=== PATIENT | female | born 1955 | race Caucasian/White ===

== ENCOUNTER 2018-05-20 12:19 | Inpatient (IN) | payer OTHER ==
[2018-05-20] MEDS ORDERED: MEROPENEM 1 GM/50 ML 1 GM in Premix Bag 1 BAG IVPB SCH (15:15)
[2018-05-20] MEDS ORDERED: Ondansetron ODT 4 MG TAB PO PRN (16:35)
[2018-05-20] MEDS ORDERED: Acetaminophen 650 MG Suppository PR PRN (16:35)
[2018-05-20] MEDS ORDERED: Ondansetron HCl/PF 4 MG/2 ML Vial IVP PRN (16:35)
[2018-05-20] MEDS ORDERED: Acetaminophen 325 MG TAB PO PRN (16:35)
[2018-05-20] MEDS ORDERED: D5 1/2 NS w/20 mEq KCL 1,000 ML IV SCH (16:45)
--- NOTE | 2018-05-20 17:11 | HP ---
DATE OF ADMISSION: 05/20/2018 PRIMARY CARE PHYSICIAN: None. CHIEF COMPLAINT: Nausea, vomiting, and abdominal discomfort over the last 48 hours. HISTORY OF PRESENT ILLNESS: The patient is a 62-year-old female with no significant past medical his tory, who presented to the emergency room with nausea, vomiting, and abdominal discomfort that starte d Friday evening. She ate outside on the same day around noon. She had some chicken for lunch. Mariaelena und 8:00 p.m., she had some cheese along with pineapple. One hour later, she started having nausea a nd vomiting with abdominal discomfort. Abdominal discomfort was mainly localized in the right lower quadrant. It was crampy, moderate to severe in intensity without any aggravating or relieving factor . She also vomited 3-4 times. The vomitus was nonbloody and nonbilious. She denies any fever or ch ills. She routinely has 2 bowel movements on a daily basis. Her last bowel movement was this mornin g, which was soft and brown. She denies any hematemesis, melena or hematochezia. No weight loss rep orted. She denies any previous endoscopies. In the emergency room at [facility], her initial vital signs showed temperature 97.4, respirations 26, pulse 105, blood pressure 141/95 with O2 saturation 93% on room air. A CT scan of the abdomen was do ne that showed terminal ileitis with functional SBO. EKG showed sinus tachycardia. She received Zos yn, fentanyl, Bentyl, IV fluids and Zofran in the emergency room. She was transferred to this facili ty. NG tube was placed. PAST MEDICAL HISTORY: Reviewed with the patient and none. PAST SURGICAL HISTORY: 1. Hysterectomy. 2. Liposuction x2. ALLERGIES: No known drug allergies. CURRENT HOME MEDICATIONS: Reviewed with the patient and none. SOCIAL HISTORY: The patient currently lives at home. She denies any smoking, alcohol or drug use. She is in contact with animals mainly dogs and horses. She is FULL CODE, makes her own decision. He r mother is at the bedside. FAMILY HISTORY: Grandmother on mother's side with stomach cancer. Grandfather on mother's side with oral cancer from smoking. REVIEW OF SYSTEMS: The following complete review of systems was negative, unless otherwise mentioned in the HPI or below: Constitutional: Weight loss or gain, ability to conduct usual activities. Skin: Rash, itching. Eyes: Double vision, pain. ENT/Mouth: Nose bleeding, neck stiffness, pain, tenderness. Cardiovascular: Palpitations, dyspnea on exertion, orthopnea. Respiratory: Shortness of breath, wheezing, cough, hemoptysis, fever or night sweats. Gastrointestinal: Poor appetite, abdominal pain, heartburn, nausea, vomiting, constipation, or diarrhea. Genitourinary: Urgency, frequency, dysuria, nocturia. Musculoskeletal: Pain, swelling. Neurologic/Psychiatric: Anxiety, depression. Allergy/Immunologic: Skin rash, bleeding tendency. PHYSICAL EXAMINATION: VITAL SIGNS: As discussed above. GENERAL: A 62-year-old female in mild distress. Pain improved with fentanyl. HEENT: Head atraumatic, normocephalic. Sclerae are anicteric. Moist mucous membrane. No oral lesi on. NECK: Supple, no JVD appreciated. No carotid bruit. LUNGS: Clear to auscultation bilaterally. No wheezing, rales or rhonchi. HEART: S1, S2 present. Regular rate and rhythm. Tachycardic. No heaves or pulsation. No signific ant murmurs appreciated. ABDOMEN: Soft, obese, diffusely tender mainly in the right lower quadrant. No guarding or rigidity noted. Bowel sounds were present. EXTREMITIES: No edema or calf tenderness. NEUROLOGIC: Grossly nonfocal, moves all four extremities. PSYCHIATRY: Alert, awake, oriented x3. SKIN: Warm and dry. LYMPH NODES: No palpable lymph nodes in the neck. PERIPHERAL VASCULAR: Radial pulses palpable bilaterally. MUSCULOSKELETAL: No joint swelling or tenderness. LABORATORY FINDINGS: CBC showed WBC 21.5 with hemoglobin 15.9, hematocrit 44.8, platelet of 263. Ur inalysis was negative for wbc or bacteria, it showed ketones. Chemistries showed sodium 138, potassi um 3.9, chloride 99, bicarbonate 27, BUN 20, creatinine 1.03, glucose 152. Lactic acid 2.4, total bi lirubin 1.7. AST, ALT, alkaline phosphatase in normal range. Lipase was 10. Chest x-ray by sobia yusuf was negative for infiltrate or edema. CT scan of the abdomen showed extremely thick terminal ileum with substantial inflammatory stranding around it and in the vicinity. There are small pockets of fluid without any abscess. It also showed mild to moderate distention of the small bowel. There were gallstones also seen. EKG by my review as discussed above. IMPRESSION: 1. Sepsis with acute organ dysfunction secondary to terminal ileitis. 2. Suspected inflammatory bowel disease. 3. Cholelithiasis without any CT finding consistent with cholecystitis. 4. Obesity. 5. Hyperglycemia, rule out diabetes. 6. Dehydration. 7. Lactic acidosis. 8. Abnormal liver function tests, probably secondary to sepsis. PLAN: The patient will be monitored on the surgical floor. GI consultation will be obtained. We wi ll continue NG tube with mild intermittent suction. We will continue IV fluids. We will keep her n. p.o. except for a few ice chips. We will get stool studies. We will start her on Zosyn. We will al so add Flagyl until C. diff is ruled out. We will repeat labs on a daily basis. Repeat lactic acid in a.m. Recheck LFTs in a.m. Plan of care was discussed with the patient in detail. She stated understanding.
[2018-05-20] MEDS: D5 1/2 NS w/20 mEq KCL 1,000 ML IV SCH (18:18)
[2018-05-20] MEDS: Piperacillin/Tazobactam 3.375 GM in Sodium Chloride 0.9% 100 ML IVPB SCH ×2 (18:24→20:55)
[2018-05-20] MEDS: metroNIDAZOLE 500 MG in Premix Bag 1 BAG IVPB SCH (18:25)
[2018-05-20 18:32] VITALS: BMI 38.4
[2018-05-20] MEDS: Famotidine/PF 20 mg/2ml Vial SLOW IVP SCH (20:55)
--- NOTE | 2018-05-20 23:30 | CON ---
DATE OF CONSULTATION: 05/20/2018 REASON FOR CONSULTATION: Abdominal pain, distention, nausea, and vomiting. HISTORY: Ms. Gonzalez is a 62-year-old female who has been essentially very healthy without any m edical issue presented to [facility] emergency room with a 2-day history of persistent abdominal disten tion and diffuse abdominal pain along with nausea, vomiting. During this time, she denies having any fever or chills. She did have 2 bowel movements over the last 48 hours, one regular stool, and one loose stool without any visible blood or mucus. The distention increased and persisted along with di ffuse abdominal pain. This prompted ER visit. CT performed of the abdomen and pelvis showed mural t hickening involving the distal ileum with surrounding inflammatory changes with possible dilatation o f the small bowel. Her colon exam appeared normal on CT. The patient denies having any antecedent g astrointestinal problem or symptoms. She did have a negative colonoscopy in 1999 while living in [facility]. PAST MEDICAL HISTORY: 1. Status post hysterectomy and BSO. 2. History of liposuction. 3. No medical illness. ALLERGIES: None. MEDICATIONS AT HOME: None. SOCIAL HISTORY: The patient is , has one daughter. No tobacco or alcohol usage. FAMILY HISTORY: Negative for any known GI problem, liver disease, or GI malignancy in the immediate family. Paternal grandmother with gastric cancer. REVIEW OF SYSTEMS: Weight stable. Appetite normal. Eyes, ears, nose, and throat: All negative. C ardiovascular: Denies any chest pain. Chest: No shortness of breath or coughing. Gastrointestinal : As above. Genitourinary: No urinary or bladder issue. Gynecologic/neurologic/psychiatric: All negative. PHYSICAL EXAMINATION: VITAL SIGNS: Temperature is 98.7, blood pressure 146/82, pulse of 91. GENERAL: She is alert, conversant, in no distress. HEENT: Anicteric sclerae. Oropharynx clear. There is an NG tube through the nostril with bilious a spirate. NECK: Supple. CARDIOVASCULAR: Normal S1, S2. Regular rate and rhythm. CHEST: Breath sounds. ABDOMEN: Distended and protuberant. Diffuse tympany. No active bowel sounds. Diffusely tender, bu t no peritoneal sign. EXTREMITIES: No edema. LABORATORY DATA: WBC is 21.5, hemoglobin 15.9, hematocrit 44.8%, platelet count of 263. Sodium 138, potassium 2.9, chloride 99, CO2 of 27, creatinine 1.03, BUN of 20, bilirubin 1.7, AST of 10, ALT of 17, alkaline phosphatase 98, lipase of 10. Abdominal pelvic CT performed at 9 o'clock this morning s howed severe mural thickening involving the distal ileum with surrounding inflammatory stranding with possible dilation of the small bowel. ASSESSMENT: 1. A 62-year-old female presents with small-bowel obstruction with CT demonstrating severe inflammat ory changes involving distal ileum causing small-bowel obstruction. Clinical presentation along with CT findings suggestive of Crohn's disease. I doubt that this is an infectious process or neoplastic process. 2. Small-bowel obstruction secondary to #1 with resultant abdominal distention, pain, nausea, and vo miting. RECOMMENDATIONS: 1. Continue IV hydration. 2. Continue with NG tube to low intermittent wall suction for bowel decompression. 3. We will start on prednisolone 20 mg IV q.8 hours. 4. We will follow up with abdominal x-ray in 36-48 hours. 5. We will follow closely, further recommendations to follow pending her clinical course and progres s.
[2018-05-21] MEDS: metroNIDAZOLE 500 MG in Premix Bag 1 BAG IVPB SCH ×3 (00:26→17:55)
[2018-05-21] MEDS: D5 1/2 NS w/20 mEq KCL 1,000 ML IV SCH ×2 (00:30→05:05)
[2018-05-21 04:56] LABS: #Eosinphils 0.1 thou/uL (0.0-0.7); #Monocytes 0.2 thou/uL (0.11-0.59); #Neutrophils 14.1 thou/uL (1.40-6.50); %Eosinophils 0.3 % (0.0-10.0); %Lymphocytes 6.2 % (21.0-51.0); %Neutrophils 92.4 % (42.0-75.0); Hemoglobin 13.6 g/dL (12.0-16.0); Mean Corpuscular HGB CONC 33.1 g/dL (32.0-36.0); Mean Corpuscular Hemoglobin 31.3 pg (27.0-31.0); Mean Corpuscular Volume 94.6 fL (78.0-98.0); Mean Platelet Volume 7.5 fL (7.4-10.4); Platelet Count 221 thou/uL (130-400); RBC Distribution Width 12.2 % (11.5-14.5); Red Blood Cell (RBC) Count 4.33 mill/uL (4.20-5.40); White Blood Cell (WBC) Count 15.3 thou/uL (4.8-10.8)
[2018-05-21 05:00] LABS: Hemoglobin A1c 5.5 % (4.0-6.0)
[2018-05-21 05:13] LABS: Lactic Acid 2.6 mmol/L (0.5-2.2)
[2018-05-21 05:23] LABS: ALT (SGPT) 11 U/L (8-55); AST (SGOT) 18 U/L (5-34); Albumin 3.3 g/dL (3.4-4.8); Alkaline Phosphatase 98 U/L (40-150); Anion Gap 12 mmol/L (10-20); BUN (Urea Nitrogen) 13 mg/dL (9.8-20.1); Bilirubin, Total 0.6 mg/dL (0.2-1.2); CRP (Inflammatory) 30.25 mg/dL (= or < 0.5); Calc. Creatinine Clearance 112 mL/min (70-130); Calcium 10.6 mg/dL (7.8-10.44); Carbon Dioxide 23 mmol/L (23-31); Chloride 107 mmol/L (98-107); Estimated GFR-MDRD 64; Globulin 3.6 g/dL (2.4-3.5); Glucose 239 mg/dL (80-115); Magnesium 2.5 mg/dL (1.6-2.6); Phosphorus 1.3 mg/dL (2.3-4.7); Potassium 5.2 mmol/L (3.5-5.1); Protein, Total 6.9 g/dL (6.0-8.3); Sodium 137 mmol/L (136-145)
[2018-05-21] MEDS: Piperacillin/Tazobactam 3.375 GM in Sodium Chloride 0.9% 100 ML IVPB SCH ×4 (05:44→23:16)
[2018-05-21] MEDS: Famotidine/PF 20 mg/2ml Vial SLOW IVP SCH ×2 (10:40→20:48)
--- NOTE | 2018-05-21 13:46 | PRG ---
DATE OF SERVICE: 05/21/2018 SUBJECTIVE: The patient feels significantly better. She is less distended. She no longer has any b loating, abdominal pain. She reports having had a loose bowel movement this morning. There is no na usea. PHYSICAL EXAMINATION: VITAL SIGNS: Temperature is 97.5, blood pressure 152/79, pulse of 66. GENERAL: She is alert, sitting by bedside in no distress. HEENT: Shows anicteric sclerae. Oropharynx clear. NG tube through nostril with bilious aspirate. CARDIOVASCULAR: Shows normal S1, S2 regular rate and rhythm. CHEST: Shows normal breath sounds. ABDOMEN: Protuberant. Still mildly tympanitic. There is no tenderness. She does have occasional t rickling bowel sounds. EXTREMITIES: Shows no edema. LABORATORY DATA: WBC is 15.3, hemoglobin 13.6, hematocrit 41%, platelet count of 221. Sodium 137, p otassium 5.2, chloride 107, CO2 23, creatinine 0.9. Lactic acid is 2.6, bilirubin 0.6, AST of 18, AL T of 11. C-reactive protein 30.25. ASSESSMENT: 1. Small-bowel obstruction from ileitis, clinically much better on IV methylprednisolone. 2. Suspect inflammatory ileitis consistent with Crohn's disease. Doubt infectious process or neopla stic process. RECOMMENDATIONS: 1. Stool studies as ordered. 2. Continue with NG decompression today, followup abdominal x-rays in a.m. 3. Continue IV prednisolone at 40 mg IV q.6. as patient does not have side effects. 4. Anticipate discontinuing NG tube tomorrow. 5. We will follow.
[2018-05-21] MEDS: Dextrose 5 %-0.45 % NaCl 1,000 ML IV SCH ×2 (17:55→21:15)
--- NOTE | 2018-05-21 22:39 | PDOC.PN ---
- Subjective Encounter Start Date: 05/21/18 Encounter Start Time: 14:00 Patient seen and examined for Colitis. Abd pain improving. No fever/chills. Approx 900 ml NG tube output. No other complaints. No overnight events - Objective Resuscitation Status: Resuscitation Status FULL:Full Resuscitation MAR Reviewed: Yes Vital Signs & Weight: Vital Signs (12 hours) Temp Pulse Resp BP Pulse Ox 05/21/18 20:00 98 F 68 16 157/83 H 92 L 05/21/18 16:00 97.9 F 70 24 H 146/83 H 93 L 05/21/18 12:00 97.5 F L 66 18 152/79 H 91 L Weight Weight 238 lb I&O: 05/20/18 05/21/18 05/22/18 06:59 06:59 06:59 Intake Total 2600 Output Total 900 150 Balance 1700 -150 Result Diagrams: 05/22/18 04:07 05/22/18 04:07 Radiology Reviewed by me: Yes (CT abd - reviewed) Phys Exam - Physical Examination Constitutional: NAD Respiratory: no wheezing, no rales, no rhonchi, clear to auscultation bilateral Cardiovascular: RRR, no rub No heaves/pulsations Gastrointestinal: soft, no distention, positive bowel sounds mild RLQ tend, No rebound/guarding Musculoskeletal: no edema Neurological: non-focal, moves all 4 limbs Psychiatric: A&O x 3 Dx/Plan - Plan DVT proph w/SCDs IMPRESSION: 1. Sepsis with acute organ dysfunction secondary to terminal ileitis. - infective vs inflammatory 2. Cholelithiasis without any CT finding consistent with cholecystitis. 3. Obesity BMI 38.4 4. Dehydration. 5. Lactic acidosis at 2.6 today 6. Abnormal liver function tests, probably secondary to sepsis. PLAN: * Cont Zosyn with Flagyl * Await Stool w/u * Cont IV Steroids per GI * Change IVF to D51/2 NS due to hyperkalemia * AM labs * Ambulate * Repeat Lactic acid after 48 hr Review of Systems - Review of Systems Respiratory: negative: Cough, Dry, Shortness of Breath, Hemoptysis, SOB with Excertion, Pleuritic Pain, Sputum, Wheezing Cardiovascular: negative: chest pain, palpitations, orthopnea, paroxysmal nocturnal dyspnea, edema, light headedness, other - Medications/Allergies Allergies/Adverse Reactions: Allergies Allergy/AdvReac Type Severity Reaction Status Date / Time No Known Allergies Allergy Verified 05/21/18 00:53 Medications: Current Medications Acetaminophen (Tylenol) 650 mg PO Q4H PRN PRN Reason: Headache/Fever or Pain Acetaminophen (Tylenol) 650 mg ME Q4H PRN PRN Reason: Headache/Fever or Pain Famotidine (Pepcid) 20 mg SLOW IVP Q12HR [facility] Last Admin: 05/21/18 20:48 Dose: 20 mg Metronidazole 500 mg/ Device 100 mls @ 100 mls/hr IVPB 0200,1000,1800 [facility] Last Admin: 05/21/18 17:55 Dose: 100 mls Piperacillin Sod/Tazobactam (Sod 3.375 gm/ Sodium Chloride) 100 mls @ 200 mls/ hr IVPB 0500,1100,1700,2300 [facility] Last Admin: 05/21/18 17:55 Dose: 100 mls Dextrose/Sodium Chloride (D5 1/2 Ns) 1,000 mls @ 150 mls/hr IV .[id number] [facility] Last Admin: 05/21/18 21:15 Dose: 1,000 mls Methylprednisolone Sodium Succinate (Solu-Medrol) 40 mg IVP Q6HR [facility] Last Admin: 05/21/18 17:55 Dose: 40 mg Ondansetron HCl (Zofran Odt) 4 mg PO Q6H PRN PRN Reason: Nausea/Vomiting Ondansetron HCl (Zofran) 4 mg IVP Q6H PRN PRN Reason: Nausea/Vomiting
[2018-05-22] MEDS: Dextrose 5 %-0.45 % NaCl 1,000 ML IV SCH ×3 (02:05→14:40)
[2018-05-22] MEDS: metroNIDAZOLE 500 MG in Premix Bag 1 BAG IVPB SCH ×3 (02:08→17:50)
[2018-05-22 04:30] LABS: #Lymphocytes 1.1 thou/uL (1.20-3.40); #Monocytes 0.5 thou/uL (0.11-0.59); #Neutrophils 14.5 thou/uL (1.40-6.50); %Eosinophils 0.1 % (0.0-10.0); %Monocytes 3.1 % (0.0-10.0); %Neutrophils 89.8 % (42.0-75.0); Hemoglobin 12.7 g/dL (12.0-16.0); Mean Corpuscular HGB CONC 33.9 g/dL (32.0-36.0); Mean Corpuscular Hemoglobin 31.6 pg (27.0-31.0); Mean Corpuscular Volume 93.2 fL (78.0-98.0); Mean Platelet Volume 7.7 fL (7.4-10.4); Platelet Count 238 thou/uL (130-400); RBC Distribution Width 12.1 % (11.5-14.5); Red Blood Cell (RBC) Count 4.02 mill/uL (4.20-5.40); White Blood Cell (WBC) Count 16.2 thou/uL (4.8-10.8)
[2018-05-22 04:50] LABS: Anion Gap 8 mmol/L (10-20); BUN (Urea Nitrogen) 15 mg/dL (9.8-20.1); Calc. Creatinine Clearance 140 mL/min (70-130); Carbon Dioxide 27 mmol/L (23-31); Chloride 110 mmol/L (98-107); Estimated GFR-MDRD 82; Potassium 3.8 mmol/L (3.5-5.1); Sodium 141 mmol/L (136-145)
[2018-05-22 04:51] LABS: Calcium 10.9 mg/dL (7.8-10.44); Glucose 222 mg/dL (80-115)
[2018-05-22] MEDS: Piperacillin/Tazobactam 3.375 GM in Sodium Chloride 0.9% 100 ML IVPB SCH ×4 (05:18→22:58)
--- NOTE | 2018-05-22 08:55 | RAD ---
ABDOMEN TWO VIEWS: HISTORY: A 62-year-old female with a history of followup small bowel obstruction. COMPARISON: Prior CT from 05/20/2018. FINDINGS: NG tube is in place. There is some scattered gas in the colon with a small amount of gas in one nond ilated loop of small bowel. This is considerably improved from the prior study. No new process. No free intraperitoneal air. IMPRESSION: Resolving small bowel obstruction. No significant persistent abnormally dilated small bowel loops. Scattered gas in the colon. POS: TPC
[2018-05-22] MEDS: Famotidine/PF 20 mg/2ml Vial SLOW IVP SCH (10:03)
[2018-05-22] MEDS ORDERED: Dextrose 5 %-0.45 % NaCl 1,000 ML IV SCH (11:57)
[2018-05-22] MEDS: K-Phos Neutral 250 MG TAB PO SCH ×2 (14:39→17:49)
--- NOTE | 2018-05-22 19:27 | PRG ---
DATE OF SERVICE: 05/22/2018 SUBJECTIVE: Ms. Gonzalez is doing considerably better. She has no nausea, vomiting, and very lit tle abdominal pain. NG tube has been removed. She is tolerating clear liquids thus far. PHYSICAL EXAMINATION: VITAL SIGNS: Temperature is 98.2, blood pressure 164/84, pulse of 62. GENERAL: She is alert, conversant, in no distress. HEENT: Shows anicteric sclerae. Oropharynx clear. CARDIOVASCULAR: Shows normal S1, S2. Regular rate and rhythm. CHEST: Shows breath sounds. ABDOMEN: Protuberant, but no distention, no tympany. She has hypoactive bowel sounds. EXTREMITIES: Shows no edema. LABORATORY DATA: WBC 16.2, hemoglobin 12.7, hematocrit 37.5, platelet count of 238. Sodium 141, pot assium 3.8, chloride 110, CO2 of 27, creatinine 0.72, BUN of 15. Phosphorus 1.5. IMAGING: Abdominal x-ray showed resolution of small bowel distention suggestive resolution of small- bowel obstruction. ASSESSMENT: 1. Small-bowel obstruction, resolving. 2. Suspect inflammatory ileitis consistent with Crohn's disease. Doubt infectious or neoplastic pro cess. The patient is responding well clinically to IV methylprednisolone. RECOMMENDATIONS: 1. We will decrease IV methylprednisolone to 20 mg q.8 hours. 2. Advance diet tomorrow if tolerates, can be discharged on prednisone 40 mg daily, tapering over next one month. 3. Dr. Brush will cover for GI Service this weekend.
--- NOTE | 2018-05-22 22:50 | PDOC.PN ---
- Subjective Encounter Start Date: 05/22/18 Encounter Start Time: 12:00 Patient seen and examined for Sepsis. No new complaints. Abd pain improving. No overnight events - Objective Resuscitation Status: Resuscitation Status FULL:Full Resuscitation MAR Reviewed: Yes Vital Signs & Weight: Vital Signs (12 hours) Temp Pulse Resp BP Pulse Ox 05/22/18 20:48 98 F 57 L 16 96 05/22/18 20:00 98 F 57 L 16 176/84 H 96 05/22/18 15:37 98.2 F 62 22 H 164/84 H 94 L 05/22/18 11:31 97.4 F L 59 L 14 179/90 H 94 L Weight Weight 238 lb I&O: 05/21/18 05/22/18 05/23/18 06:59 06:59 06:59 Intake Total 2600 1550 Output Total 900 350 Balance 1700 1200 Result Diagrams: 05/22/18 04:07 05/23/18 05:05 Additional Labs: Laboratory Tests 05/22/18 05/22/18 12:14 12:15 Phosphorus 1.5 L PTH Intact 168.7 H Radiology Reviewed by me: Yes (KUB - resolving SBO) Phys Exam - Physical Examination Constitutional: NAD Respiratory: no wheezing, no rhonchi Cardiovascular: RRR, no rub Gastrointestinal: soft, non-tender, positive bowel sounds mild tend in lower efraín Musculoskeletal: no edema Dx/Plan - Plan out of bed/ambulate, DVT proph w/SCDs IMPRESSION: 1. Sepsis with acute organ dysfunction secondary to terminal ileitis. - infective vs inflammatory - improving 2. Cholelithiasis without any CT finding consistent with cholecystitis. 3. Primary hyperparathyroidism - New diagnosis 4. Dehydration. 5. Lactic acidosis 6. Abnormal liver function tests(resolved)/Obesity BMI 38.4 PLAN: * Cont IV Steroids with Zosyn/Flagyl * Stool w/u pending * Change IVF to 75 ml/hr * DC NG tube * Clear liqd diet * AM labs * Ambulate * Check Vit D * Outpt follow up for Primary hyperparathyroidism * Check Lactic acid in AM . Review of Systems - Review of Systems Respiratory: negative: Cough, Dry, Shortness of Breath, Hemoptysis, SOB with Excertion, Pleuritic Pain, Sputum, Wheezing Cardiovascular: negative: chest pain, palpitations, orthopnea, paroxysmal nocturnal dyspnea, edema, light headedness, other - Medications/Allergies Allergies/Adverse Reactions: Allergies Allergy/AdvReac Type Severity Reaction Status Date / Time No Known Allergies Allergy Verified 05/21/18 00:53 Medications: Current Medications Acetaminophen (Tylenol) 650 mg PO Q4H PRN PRN Reason: Headache/Fever or Pain Acetaminophen (Tylenol) 650 mg DE Q4H PRN PRN Reason: Headache/Fever or Pain Metronidazole 500 mg/ Device 100 mls @ 100 mls/hr IVPB 0200,1000,1800 [facility] Last Admin: 05/22/18 17:50 Dose: 100 mls Piperacillin Sod/Tazobactam (Sod 3.375 gm/ Sodium Chloride) 100 mls @ 200 mls/ hr IVPB 0500,1100,1700,2300 [facility] Last Admin: 05/22/18 17:15 Dose: 100 mls Dextrose/Sodium Chloride (D5 1/2 Ns) 1,000 mls @ 75 mls/hr IV .[id number] [facility] Last Admin: 05/22/18 14:40 Dose: Not Given Methylprednisolone Sodium Succinate (Solu-Medrol) 20 mg IVP Q8HR [facility] Ondansetron HCl (Zofran Odt) 4 mg PO Q6H PRN PRN Reason: Nausea/Vomiting Ondansetron HCl (Zofran) 4 mg IVP Q6H PRN PRN Reason: Nausea/Vomiting Phosphorus (Kphos Neutral) 250 mg PO TID-[facility] Last Admin: 05/22/18 17:49 Dose: 250 mg Saccharomyces Boulardii (Florastor) 250 mg PO DAILY [facility]
[2018-05-23] MEDS: Dextrose 5 %-0.45 % NaCl 1,000 ML IV SCH ×2 (01:57→14:09)
[2018-05-23] MEDS: metroNIDAZOLE 500 MG in Premix Bag 1 BAG IVPB SCH ×3 (02:36→17:54)
[2018-05-23] MEDS: Piperacillin/Tazobactam 3.375 GM in Sodium Chloride 0.9% 100 ML IVPB SCH ×4 (05:32→22:16)
[2018-05-23 05:37] LABS: Lactic Acid 1.4 mmol/L (0.5-2.2)
[2018-05-23 05:45] LABS: Anion Gap 7 mmol/L (10-20); BUN (Urea Nitrogen) 19 mg/dL (9.8-20.1); Calc. Creatinine Clearance 134 mL/min (70-130); Calcium 10.4 mg/dL (7.8-10.44); Carbon Dioxide 28 mmol/L (23-31); Chloride 110 mmol/L (98-107); Estimated GFR-MDRD 79; Glucose 161 mg/dL (80-115); Phosphorus 2.7 mg/dL (2.3-4.7); Potassium 3.8 mmol/L (3.5-5.1); Sodium 141 mmol/L (136-145)
[2018-05-23] MEDS: Saccharomyces boulardii 250 MG CAP PO SCH (10:31)
[2018-05-23] MEDS: K-Phos Neutral 250 MG TAB PO SCH ×3 (10:31→17:53)
--- NOTE | 2018-05-23 13:46 | PRG ---
DATE OF SERVICE: 05/23/2018 SUBJECTIVE: Ms. Pao Gonzalez is a very pleasant 62-year-old female with acute onset of abdominal cramping, nausea, and vomiting. The patient has evidence of SBO by CAT scan and it was felt that patient most likely has IBD, possibly new onset of Crohn's disease. The patient has been on IV steroids and she is actually feeling better. The and she is following a clear liquid t. She is having bowel movements and passing flatus. No abdominal pain, no nausea, no vomiting. Sh claudia is on IV steroids. She has no complaints. Her calcium was 10.9 on admission, it has come to 10.4 today. She is being seen by Nephrology because of hypercalcemia. She offers no complaints. PHYSICAL EXAMINATION: GENERAL: Appears very comfortable, in no distress. VITAL SIGNS: Stable, afebrile, pulse is 59, blood pressure 175/87. HEENT: Conjunctivae clear. CARDIOVASCULAR: First and second heart sounds were normal. LUNGS: Clear to auscultation. ABDOMEN: Soft to palpate. No organomegaly. No tenderness. She has active bowel sounds. LABORATORY DATA: Chem-7 from today shows sodium of 141, potassium 3.8, chloride 110, bicarbonate 28, glucose is 161, BUN is 19 and creatinine 0.75. RECOMMENDATIONS: Advance diet to a regular diet. If she tolerates diet, we will consider dischargin g home on .
[2018-05-23] MEDS ORDERED: hydrALAZINE 20 MG/ML VIAL SLOW IVP PRN (15:58)
[2018-05-23] MEDS ORDERED: cloNIDine 0.1 MG TAB PO PRN (15:58)
[2018-05-23] MEDS ORDERED: Amlodipine 5 MG TAB PO SCH (16:00)
[2018-05-23] MEDS ORDERED: NIFEdipine XL 30 MG TAB PO PRN (18:42)
--- NOTE | 2018-05-23 18:47 | PDOC.PN ---
- Subjective Encounter Start Date: 05/23/18 Encounter Start Time: 18:30 Patient seen and examined for Sepsis/Ilietis. No new complaints. Toleraing regular diet. No overnight events - Objective Resuscitation Status: Resuscitation Status FULL:Full Resuscitation MAR Reviewed: Yes Vital Signs & Weight: Vital Signs (12 hours) Temp Pulse Resp BP Pulse Ox 05/23/18 15:13 97.7 F 55 L 16 191/80 H 98 05/23/18 11:00 97.8 F 52 L 16 184/80 H 97 05/23/18 08:00 97.7 F 59 L 16 95 05/23/18 07:43 97.7 F 59 L 16 175/87 H 95 Weight Weight 238 lb I&O: 05/22/18 05/23/18 05/24/18 06:59 06:59 06:59 Intake Total 1550 2230 Output Total 350 300 Balance 1200 -300 2230 Result Diagrams: 05/22/18 04:07 05/23/18 05:05 Phys Exam - Physical Examination Constitutional: NAD Respiratory: no wheezing, no rales, no rhonchi Cardiovascular: RRR, no rub Gastrointestinal: soft, non-tender, positive bowel sounds Musculoskeletal: no edema Neurological: moves all 4 limbs Dx/Plan - Plan DVT proph w/SCDs IMPRESSION: 1. Sepsis with acute organ dysfunction secondary to terminal ileitis ( infective vs inflammatory) 2. Cholelithiasis - asymtomatic 3. Hypercalcemia/Hypophosphatemia due to Primary hyperparathyroidism 4. HTN - uncontrolled. 5. Dehydration/Lactic acidosis/Abnormal liver function tests - resolved/ Obesity BMI 38.4 PLAN: -Cont Atbx/steroids -Await Stool w/u -DC IVF -Add Procardia XL -DC planning Laboratory Tests 05/22/18 05/22/18 05/23/18 12:14 12:15 05:05 Phosphorus 1.5 L 2.7 PTH Intact 168.7 H Review of Systems - Review of Systems Respiratory: negative: Cough, Dry, Shortness of Breath, Hemoptysis, SOB with Excertion, Pleuritic Pain, Sputum, Wheezing Cardiovascular: negative: chest pain, palpitations, orthopnea, paroxysmal nocturnal dyspnea, edema, light headedness, other Gastrointestinal: negative: Nausea, Vomiting, Abdominal Pain, Diarrhea, Constipation, Melena, Hematochezia, Other - Medications/Allergies Allergies/Adverse Reactions: Allergies Allergy/AdvReac Type Severity Reaction Status Date / Time No Known Allergies Allergy Verified 05/21/18 00:53 Medications: Current Medications Acetaminophen (Tylenol) 650 mg PO Q4H PRN PRN Reason: Headache/Fever or Pain Acetaminophen (Tylenol) 650 mg NV Q4H PRN PRN Reason: Headache/Fever or Pain Clonidine (Catapres) 0.1 mg PO Q4H PRN PRN Reason: Systolic BP > 180 Hydralazine HCl (Apresoline) 10 mg SLOW IVP Q4H PRN PRN Reason: SBP Greater Than 180 Metronidazole 500 mg/ Device 100 mls @ 100 mls/hr IVPB 0200,1000,1800 [facility] Last Admin: 05/23/18 17:54 Dose: 100 mls Piperacillin Sod/Tazobactam (Sod 3.375 gm/ Sodium Chloride) 100 mls @ 200 mls/ hr IVPB 0500,1100,1700,2300 [facility] Last Admin: 05/23/18 17:53 Dose: 100 mls Methylprednisolone Sodium Succinate (Solu-Medrol) 20 mg IVP Q8HR [facility] Last Admin: 05/23/18 14:10 Dose: 20 mg Nifedipine (Procardia Xl) 30 mg PO BID PRN PRN Reason: SBP Greater Than 180 Ondansetron HCl (Zofran Odt) 4 mg PO Q6H PRN PRN Reason: Nausea/Vomiting Ondansetron HCl (Zofran) 4 mg IVP Q6H PRN PRN Reason: Nausea/Vomiting Pantoprazole Sodium (Protonix) 40 mg PO DAILY [facility] Phosphorus (Kphos Neutral) 250 mg PO TID-[facility] Last Admin: 05/23/18 17:53 Dose: 250 mg Saccharomyces Boulardii (Florastor) 250 mg PO DAILY [facility] Last Admin: 05/23/18 10:31 Dose: 250 mg
[2018-05-23] MEDS ORDERED: NIFEdipine XL 30 MG TAB PO SCH (21:00)
[2018-05-24] MEDS: metroNIDAZOLE 500 MG in Premix Bag 1 BAG IVPB SCH ×2 (02:13→09:40)
[2018-05-24 05:26] LABS: #Lymphocytes 1.4 thou/uL (1.20-3.40); #Monocytes 0.5 thou/uL (0.11-0.59); #Neutrophils 6.8 thou/uL (1.40-6.50); %Basophils 0.1 % (0.0-1.0); %Eosinophils 0.4 % (0.0-10.0); %Lymphocytes 15.5 % (21.0-51.0); %Monocytes 5.9 % (0.0-10.0); %Neutrophils 78.1 % (42.0-75.0); Hemoglobin 13.4 g/dL (12.0-16.0); Mean Corpuscular HGB CONC 32.6 g/dL (32.0-36.0); Mean Corpuscular Hemoglobin 30.6 pg (27.0-31.0); Mean Corpuscular Volume 93.9 fL (78.0-98.0); Mean Platelet Volume 7.4 fL (7.4-10.4); Platelet Count 263 thou/uL (130-400); RBC Distribution Width 12.1 % (11.5-14.5); Red Blood Cell (RBC) Count 4.37 mill/uL (4.20-5.40); White Blood Cell (WBC) Count 8.7 thou/uL (4.8-10.8)
[2018-05-24] MEDS: Piperacillin/Tazobactam 3.375 GM in Sodium Chloride 0.9% 100 ML IVPB SCH ×2 (05:30→10:32)
[2018-05-24 05:35] LABS: Anion Gap 11 mmol/L (10-20); BUN (Urea Nitrogen) 14 mg/dL (9.8-20.1); Calc. Creatinine Clearance 144 mL/min (70-130); Calcium 10.5 mg/dL (7.8-10.44); Carbon Dioxide 28 mmol/L (23-31); Chloride 108 mmol/L (98-107); Estimated GFR-MDRD 85; Glucose 176 mg/dL (80-115); Potassium 5.1 mmol/L (3.5-5.1); Sodium 142 mmol/L (136-145)
[2018-05-24] MEDS ORDERED: Amlodipine 5 MG TAB PO SCH (09:00)
--- NOTE | 2018-05-24 09:02 | CON ---
DATE OF CONSULTATION: 05/23/2018 CONSULTING PHYSICIAN: Dr. Sierra. REASON FOR CONSULTATION: Hypercalcemia. REASON FOR ADMISSION: Nausea and vomiting. HISTORY OF PRESENT ILLNESS: This is a 62-year-old female with history of no significant past medical history, who came to the hospital with nausea, vomiting, and was found to have hypercalcemia, which is getting better with IV hydration. Nephrology is consulted for further evaluation. The patient is feeling much better. . No chest pain or shortness of breath. PAST MEDICAL HISTORY: None. PAST SURGICAL HISTORY: Hysterectomy, liposuction. HOME MEDICATIONS: None. ALLERGIES: No known drug allergies. SOCIAL HISTORY: No smoking, alcohol, or illicit drug abuse. FAMILY HISTORY: Positive for cancer. REVIEW OF SYSTEMS: The following complete review of systems was negative, unless otherwise mentioned in the HPI or below: Constitutional: Weight loss or gain, ability to conduct usual activities. Sk in: Rash, itching. Eyes: Double vision, pain. ENT/Mouth: Nose bleeding, neck stiffness, pain, te nderness. Cardiovascular: Palpitations, dyspnea on exertion, orthopnea. Respiratory: Shortness of breath, wheezing, cough, hemoptysis, fever or night sweats. Gastrointestinal: Poor appetite, abdom inal pain, heartburn, nausea, vomiting, constipation, or diarrhea. Genitourinary: Urgency, frequenc y, dysuria, nocturia. Musculoskeletal: Pain, swelling. Neurologic/Psychiatric: Anxiety, depressio n. Allergy/Immunologic: Skin rash, bleeding tendency. PHYSICAL EXAMINATION: GENERAL: This is an obese female, in no apparent distress. VITAL SIGNS: Temperature 97.7, pulse 59, respirations 18, blood pressure 175/87. HEENT: Atraumatic, normocephalic. Oral mucosa is moist. NECK: Supple, no masses. CARDIOVASCULAR: S1, S2, rate and rhythm regular. RESPIRATORY: Clear. GASTROINTESTINAL: Abdomen is soft. MUSCULOSKELETAL: No tenderness. No edema. DERMATOLOGIC: No skin rash. NEUROLOGIC: Alert and awake. PSYCHIATRIC: Mood and affect normal. LABORATORY DATA: Hemoglobin is 12.7. Potassium is 3.8, BUN is 19, creatinine is 0.8. Calcium is 10 .4, on admission was 11.9. PTH was 168. Phosphorus is 1.5 2.7. ASSESSMENT AND PLAN: 1. Hypercalcemia and PTH dependent. We will have to repeat labs. If this remains elevated, the pat ient needs to have parathyroid scan and maybe follow up with ENT or Endocrinology as outpatient. 2. Hypertension. Titrate medications. 3. Hypophosphatemia, replace. 4. Lactic acidosis, better. 5. Morbid obesity. 6. Edema, controlled. 7. Titrate blood pressure medications and IV fluids if tolerated. Calcium is already better. Need workup as outpatient. We will follow. Thank you for the consult.
[2018-05-24] MEDS: Saccharomyces boulardii 250 MG CAP PO SCH (09:40)
[2018-05-24] MEDS: K-Phos Neutral 250 MG TAB PO SCH (09:41)
[2018-05-24 12:04] VITALS: BP 165/86; TEMP 97.3
--- NOTE | 2018-05-24 12:54 | PRG ---
DATE OF SERVICE: 05/24/2018 SUBJECTIVE: Patient was seen and examined at bedside and overnight events noted. Patient denies any shortness of breath or chest pain or palpitation. No history of nausea or vomiting or diarrhea or f ever or chills or cramps. OBJECTIVE: GENERAL: This is an elderly female in no apparent distress. VITAL SIGNS: Temperature 98.7, pulse 64, respiratory rate 19, blood pressure 134/83. HEENT: Atraumatic, normocephalic. Oral mucosa is moist. NECK: Supple. CARDIOVASCULAR: S1, S2 heard. Rate and rhythm regular. RESPIRATORY: Clear to auscultation. GASTROINTESTINAL: Abdomen is soft. MUSCULOSKELETAL: No tenderness. No edema. DERMATOLOGIC: No skin rash. NEUROLOGIC: Alert and awake and oriented x3. No focal neurologic deficits. Moving all the extremiti es. PSYCHIATRIC: Mood and affect normal. LABORATORY DATA: Potassium is 5.1, BUN 14, creatinine 0.7, calcium is 10.5, vitamin D 11.3. ASSESSMENT AND PLAN: 1. Hypercalcemia, PTH dependent. Need a nuclear medicine scan as outpatient. 2. Vitamin D deficiency. We will start on vitamin D. 3. Hypophosphatemia, replaced. 4. Edema, controlled. 5. Mild hyperkalemia. Agree with holding the supplements. The patient was advised to follow up with the clinic in 1-2 weeks. Limit calcium supplements. Okay with vitamin D supplements for now. Monitor PTH.
--- NOTE | 2018-05-24 13:07 | DIS ---
DISCHARGE DISPOSITION: Home. FOLLOWUP: 1. Follow up with primary care physician in 1 week. Patient does not have a primary care physician at this time. She will find one close to home. She is unable to provide the name of the PCP at this time. 2. Follow up with Gastroenterology, Dr. Zhang, next week. 3. Follow up with Nephrology, Dr. Thakkar, next week for hypercalcemia. 4. Follow up with ENT, Dr. Juan Hinojosa, for new diagnosis of primary hyperparathyroidism. The patient was seen on the day of discharge. Denies any new complaints, no chest pain, shortness of breath, palpitations. BRIEF HOSPITAL COURSE: Patient is a 62-year-old female with no significant past medical history, who presented to the hospital with nausea, vomiting, and abdominal discomfort for the last 48 hours. He r workup was consistent with sepsis with acute organ dysfunction secondary to terminal ileitis with s mall-bowel obstruction. NG tube was placed in the emergency room, which was continued. The patient was seen by Gastroenterology, Dr. Zhang. She was placed on Zosyn with Flagyl. Dr. Zhang started her o n IV steroids for possible inflammatory bowel disease. She has shown good improvement over the last 48 hours. NG tube has been discontinued. She is tolerating regular food. Her WBC counts are back t o normal at 8.7 from 21.5. She has been cleared by Gastroenterology for discharge on prednisone tape r. Risk from prednisone discussed with the patient. She stated understanding. The patient was found to have hypercalcemia on admission. She was found to have low phosphorus as we ll as elevated parathyroid hormone at 168.7. Vitamin D was 11.3. The patient was seen by Nephrology , Dr. Thakkar. She will follow up with ENT as an outpatient for further workup. She understands the plan. Plan of care was discussed with the patient in detail. She stated understanding. FINAL DIAGNOSES: 1. Sepsis with acute organ dysfunction, secondary to terminal ileitis with small-bowel obstruction. 2. New diagnosis of primary hyperparathyroidism. 3. Electrolyte abnormalities. The patient has hypercalcemia and hypophosphatemia. 4. Hypertension. The patient used to be on antihypertensives in the remote past. She has been star juan on Procardia-XL 30 mg daily. She was advised to monitor blood pressure on a daily basis. 5. Dehydration with lactic acidosis on admission, resolved. 6. Abnormal liver function tests, resolved. 7. Obesity with a BMI of 38.4. 8. Vitamin D deficiency. SIGNIFICANT LABORATORIES: Stool workup was negative except for positive leukocyte esterase. Total b ilirubin on admission 1.7, next day was 0.6. CRP 30.25. Plan of care was discussed with the patient in detail. She stated understanding. Total time coordinating the discharge of this patient was 33 minutes.
--- NOTE | 2018-05-24 13:50 | PRG ---
DATE OF SERVICE: 05/24/2018 HOSPITAL VISIT NOTE HISTORY OF PRESENT ILLNESS: This is a 62-year-old female hospitalized with acute abdominal pain, nausea, vomiting, and findings of SBO. The patient's ileal inflammation was felt to be new on set of Crohn's disease. The patient was started on IV steroids and has done remarkably well. She is on regular diet, tolerating it without any abdominal pain, nausea, vomiting. She is having regular bowel movements. She has no complaints. PHYSICAL EXAMINATION: VITAL SIGNS: Afebrile. Her vital signs are stable. CARDIOVASCULAR SYSTEM: First and second heart sounds were normal. LUNGS: Clear to auscultation. ABDOMEN: Soft to palpate. No organomegaly. No tenderness. No masses. CLINICAL IMPRESSION: 1. SBO, resolved. 2. New onset Crohn's disease, most likely. RECOMMENDATIONS: 1. The patient can be discharged home on prednisone taper to start with 40 mg once a day and cut saige n by 5 mg every week. 2. Potassium supplement. 3. To follow up with Dr. Lisandro Zhang in the next week or so.
[2018-05-24] MEDS ORDERED: NIFEdipine XL 30 MG TAB PO SCH (21:00)
== END 2018-05-24 13:10 | disposition home or self-care (01) | DRG 872 ==
LOC: ERS 12:19 → SURG B 16:17
PROVIDERS: ADMIT Internal Medicine; ATTEND Internal Medicine
DX: A41.9 Sepsis, unspecified organism (principal); E87.2 Acidosis; K50.012 Crohn's disease of small intestine with intestinal obstruction; R65.20 Severe sepsis without septic shock; K80.20 Calculus of gallbladder without cholecystitis without obstruction; E21.0 Primary hyperparathyroidism; I10 Essential (primary) hypertension; E86.0 Dehydration; E66.9 Obesity, unspecified; Z68.38 Body mass index [BMI] 38.0-38.9, adult; Z90.710 Acquired absence of both cervix and uterus; R73.9 Hyperglycemia, unspecified; E55.9 Vitamin D deficiency, unspecified; E87.5 Hyperkalemia; K52.9 Noninfective gastroenteritis and colitis, unspecified
CPT/HCPCS: 36415; 74019; 80048; 80053; 82306; 83036; 83605; 83630; 83735; 83970; 84100; 85025; 85652; 86140; 87045; 87046; 87081; 87324; 87449; 87899; 99285; A4216; J2185; J2405; J2543; J2920; J7050; S0028

== ENCOUNTER 2020-11-30 15:41 | Observation (INO) | payer OTHER ==
[~2020-11-30 15:41] MED LIST: Dexamethasone 20 MG/5 ML VIAL ONE; Glycopyrrolate 0.2 MG/ML 5 ML SYRINGE ONE; Ketorolac Tromethamine 30 MG/ML VIAL ONE; Ondansetron PF 4 MG/2 ML Vial ONE; PROPOFOL 200 MG/20 ML VIAL ONE; Rocuronium Bromide 10 MG/ML (10ML VIAL) ONE; Succinylcholine 200 MG/10 ml SYRINGE FS ONE; diphenhydrAMINE 50 MG/ML VIAL ONE
[2020-11-30] MEDS ORDERED: Midazolam HCl 2 mg/2 ml Vial ONE (15:56)
[2020-11-30] MEDS ORDERED: Fentanyl 100 MCG/2 ML VIAL ONE (15:56)
[2020-11-30] MEDS ORDERED: Bupivacaine 0.25% HCL 30 ML VIAL ONE (16:07)
[2020-11-30] MEDS ORDERED: XYLOCAINE 2%-EPI 1:100,000 20 ML VIAL ONE (16:07)
[2020-11-30] MEDS ORDERED: Sodium Chloride 0.9% 20 ML ONE (16:25)
[2020-11-30] MEDS ORDERED: cefOXitin 2 GM in Sodium Chloride 0.9% 100 ML IVPB SCH (16:30)
[2020-11-30] MEDS ORDERED: cefOXitin Sodium/Dextrose 2 GM/50 ML BAG ONE (16:36)
--- NOTE | 2020-11-30 16:45 | HP ---
HISTORY OF PRESENT ILLNESS: Ms. Gonzalez is a 65-year-old woman. She is 5 feet 6 inches and weighs 219 pounds. The patient reports insidious onset of sharp periumbilical abdominal pain, which started approximately 5:00 a.m. and has worsened over the course of the day. Pain was rated at 9/10 at maximum intensity and has since settled in the right lower quadrant. Pain is associated with multiple episodes of nausea and 2 bouts of nonbilious emesis. She denies any fevers or chills. She denies any diarrhea or unexplained weight loss. PAST MEDICAL HISTORY: She denies any previous medical problems. PAST SURGICAL HISTORY: She admits to abdominal hysterectomy and abdominoplasty. SOCIAL HISTORY: She is a who is an junior staff accountant by profession. She denies any cigarette smoking, ethanol, or illicit drug abuse. She lives independently. CURRENT MEDICATIONS: Wcdv-hyw-upmzgbu multivitamins. ALLERGIES: THE PATIENT DENIES ANY KNOWN DRUG ALLERGIES. FAMILY HISTORY: Noncontributory for this patient's age. REVIEW OF SYSTEMS: 10-point review of systems essentially unremarkable except as stated in past medical history and chief complaint. PHYSICAL EXAMINATION: GENERAL: This reveals a 65-year-old obese woman, who is otherwise coherent, interactive, and appears stated age. The patient is alert and oriented x3. She appears to be in no acute distress at the time of my evaluation. VITAL SIGNS: Include blood pressure 174/102, pulse 84, respiratory rate is 18, temperature 97.3 degrees Fahrenheit, oxygen saturation 100% on room air. HEENT: Reveals normocephalic and atraumatic. Pupils are equal, round, reactive to light and accommodation. Extraocular muscles are intact bilaterally. She has no scleral icterus present. Oral mucosa is pink and moist. No lesions are noted. NECK: Supple. No palpable lymphadenopathy or thyromegaly present. HEART: Reveals regular rate and rhythm. No murmurs or gallops auscultated. LUNGS: Clear to auscultation bilaterally. Her breathing is regular and nonlabored. ABDOMEN: Soft and obese. She has right lower quadrant tenderness to palpation. She has a positive Rovsing sign. Liver and spleen are otherwise nonpalpable below costal margin. She has a low extended Pfannenstiel incision consistent with prior history of abdominal hysterectomy and subsequent abdominoplasty. NEUROLOGIC: Reveals no focal deficits present. LABORATORY DATA: Pertinent laboratory findings today include a CBC, which was obtained in [place] with 12,500 white blood cells, hemoglobin and hematocrit 16.1 and 47.1 respectively. Platelets count 227,000. Urinalysis is essentially unremarkable. COVID-19 test is negative. Metabolic profile; sodium 139, potassium 4.0, chloride is 104, bicarb is 25, BUN 12, creatinine 0.73, glucose 135, lactic acid is 1.2, total bilirubin is 0.6, AST and ALT normal at 20 and 27 respectively. Serum lipase is normal at 25. IMAGING STUDIES: I have personally reviewed the CT scan of the abdomen and pelvis obtained in [place]. This is remarkable for a fluid-filled dilated appendix, which measures 18 mm in diameter. No pneumoperitoneum or significant free fluid is noted. Stable multiple intraluminal gallstones noted without any evidence of acute cholecystitis. IMPRESSION: Acute appendicitis. RECOMMENDATIONS AND PLAN: Laparoscopic appendectomy. I have advised the patient of the above findings and recommendations. I have also informed her of the risks and benefits of proposed surgery to include, but not limited to bleeding, infection, injury to bowel or surrounding structures. This information was provided to the patient in the presence of her nurse at bedside. The patient indicates understanding of the information provided. I have answered her questions. The patient has granted consent for this admission and surgical intervention. Job ID: [id number]
[2020-11-30] MEDS ORDERED: Enoxaparin Sodium 40 MG/0.4 ML SYRINGE ONE (17:17)
[2020-11-30] MEDS ORDERED: Dextrose 50% Abboject 50 ML SYRINGE SLOW IVP PRN ×2 (18:52→20:26)
[2020-11-30] MEDS ORDERED: Ondansetron PF 4 MG/2 ML Vial IVP PRN (18:52)
[2020-11-30] MEDS ORDERED: Morphine 2 MG/ML VIAL SLOW IVP PRN (18:52)
[2020-11-30] MEDS ORDERED: hydrALAZINE 20 MG/ML VIAL SLOW IVP PRN ×2 (18:52→20:26)
[2020-11-30] MEDS ORDERED: Promethazine HCl 25 MG/ML VIAL IM PRN ×2 (18:52→18:59)
[2020-11-30] MEDS ORDERED: Dextrose 5% in Water 1,000 ML IV PRN ×2 (18:52→20:26)
[2020-11-30] MEDS ORDERED: traMADol HCl 50 MG TAB PO PRN ×2 (18:55)
[2020-11-30] MEDS ORDERED: Promethazine HCl 25 MG/ML VIAL SLOW IVP PRN (18:59)
[2020-11-30] MEDS ORDERED: Ondansetron HCl/PF 4 MG/2 ML Vial IVP PRN (18:59)
[2020-11-30] MEDS: Lactated Ringer's 1,000 ML IV SCH (21:00)
[2020-11-30] MEDS: Famotidine/PF 20 mg/2ml Vial SLOW IVP SCH (21:23)
[2020-11-30] MEDS: Famotidine 20 MG TAB PO SCH (21:23)
[2020-11-30 22:14] VITALS: BMI 38.4
[2020-11-30] MEDS: Piperacillin/Tazobactam 3.375 GM in Sodium Chloride 0.9% 100 ML IVPB SCH (23:17)
[2020-11-30] MEDS: Acetaminophen 500 MG TAB PO SCH (23:17)
[2020-11-30] MEDS: Ketorolac Tromethamine 30 MG/ML VIAL IVP SCH (23:18)
--- NOTE | 2020-11-30 23:56 | OP ---
DATE OF PROCEDURE: 11/30/2020 PREOPERATIVE DIAGNOSIS: Acute appendicitis. POSTOPERATIVE DIAGNOSES: 1. Acute suppurative appendicitis with perforation. 2. Intraabdominal adhesions. OPERATIONS PERFORMED: 1. Laparoscopic adhesiolysis. 2. Laparoscopic appendectomy. ANESTHESIA: General endotracheal. ESTIMATED BLOOD LOSS: 50 mL. FLUIDS GIVEN: 1200 mL crystalloid. SPONGE AND INSTRUMENT COUNTS: Verified as correct x2. COMPLICATIONS: None apparent at the time of operation. INDICATIONS FOR OPERATION: This is a 65-year-old morbidly obese woman, who presented with 24-hour history of periumbilical abdominal pain, which settled in the right lower quadrant. Clinical and radiographic examination were consistent with acute appendicitis, for which the patient was brought to the operating room for appendectomy. Findings are consistent with dilated suppurative appendix with evidence of perforation of the base and purulent pus. Additionally, extensive intraabdominal adhesions were encountered involving the anterior abdominal wall. DESCRIPTION OF PROCEDURE: Informed consent was obtained from the patient, was brought to the operating room and placed in supine position. Following general anesthesia, Miramontes catheter was inserted and placed to bedside drain. The abdomen was sterilely prepped and draped in usual fashion. The skin above the umbilicus was infiltrated with 0.25% Marcaine with epinephrine. A small curvilinear supraumbilical incision was made using an 11 scalpel. Umbilical stalk was grasped with Addie and elevated. Veress needle was inserted through the incision and placed in the peritoneal cavity through which the abdomen was insufflated with 4 L of CO2 gas. Intraabdominal pressure noted at 2 mmHg. Following abdominal insufflation, the Veress needle was removed and a 5 mm trocar introduced using a Visiport under laparoscopy. Laparoscopy confirmed proper placement of the port, no injuries to underlying structures. Additional laparoscopy reveals extensive amount of omental adhesions involving the anterior abdominal wall. Under direct vision, a right lower quadrant 5 mm port was introduced after the overlying skin was infiltrated with 0.25% Marcaine with epinephrine. Appropriate incision was made. I introduced the LigaSure device from this port site using this to take down omental adhesions to transilluminate left lower quadrant abdominal wall chosen for placement of the port. At that juncture, a 5 mm left lower quadrant port was placed after the overlying skin infiltrated with 0.25% Marcaine with epinephrine. Appropriate incision was made. The patient was placed in a Trendelenburg position, rotated to her left. I introduced the Endo suction catheter using this to bluntly take down omental adhesions from the right lower quadrant to expose a dilated appendix. An Endo [place] forceps was then introduced through the right lower quadrant port site grasping the appendix, which was elevated. I used LigaSure device to sterilely take down omental adhesions down to the base of the appendix. This appendiceal stump appeared to be have blown off the cecum. The appendix was then delivered off the abdominal cavity using an EndoCatch. I then proceeded to bluntly dissect the right lower quadrant again following the course of distal ileum from the ileocecal junction down to proximal 2 feet finding no Meckel's diverticulum. The appendiceal stump was then dissected from the cecum and divided the appendix cecal junction using Endo loop. This fragment was delivered off the abdominal cavity using a second EndoCatch. Operative site was irrigated with saline. A #19 Walt drain was introduced through the right lower quadrant port site with the tip coursing the right lateral gutter and part of the drain in the deep pelvis. This drain was allowed to exit the right lower quadrant port site. The drain was secured to anterior abdominal wall using 2-0 silk suture. Finding no other pathology, laparoscopy was terminated. The fascia of the left lower quadrant port was closed using 0 Vicryl suture and Endoclosure device under laparoscopy. The abdomen was desufflated. All ports and instruments removed and accounted for. The skin incisions closed using 4-0 Monocryl suture in subcuticular fashion. Dermabond was applied over incisional closure. The patient tolerated the operation without any apparent complication and was returned to recovery room in satisfactory condition. Job ID: [id number]
[2020-11-30] MEDS ORDERED: Acetaminophen 500 MG TAB PO SCH (23:59)
[2020-12-01] MEDS: Piperacillin/Tazobactam 3.375 GM in Sodium Chloride 0.9% 100 ML IVPB SCH (05:25)
[2020-12-01] MEDS: Acetaminophen 500 MG TAB PO SCH (05:25)
[2020-12-01] MEDS: Lactated Ringer's 1,000 ML IV SCH (05:25)
[2020-12-01] MEDS: Ketorolac Tromethamine 30 MG/ML VIAL IVP SCH (05:26)
[2020-12-01 05:46] LABS: #Lymphocytes 1.3 thou/uL (1.20-3.40); #Monocytes 1.1 thou/uL (0.11-0.59); #Neutrophils 17.4 thou/uL (1.40-6.50); %Eosinophils 0.1 % (0.0-10.0); %Lymphocytes 6.6 % (21.0-51.0); %Monocytes 5.7 % (0.0-10.0); %Neutrophils 87.6 % (42.0-75.0); Hemoglobin 14.3 g/dL (12.0-16.0); Mean Corpuscular HGB CONC 32.9 g/dL (32.0-36.0); Mean Corpuscular Hemoglobin 30.9 pg (27.0-31.0); Mean Corpuscular Volume 93.8 fL (78.0-98.0); Mean Platelet Volume 7.7 fL (7.4-10.4); Platelet Count 237 thou/uL (130-400); RBC Distribution Width 11.7 % (11.5-14.5); Red Blood Cell (RBC) Count 4.63 mill/uL (4.20-5.40); White Blood Cell (WBC) Count 19.8 thou/uL (4.8-10.8)
[2020-12-01 06:15] LABS: Anion Gap 14 mmol/L (10-20); BUN (Urea Nitrogen) 12 mg/dL (9.8-20.1); Calc. Creatinine Clearance 133 mL/min (70-130); Calcium 9.4 mg/dL (7.8-10.44); Carbon Dioxide 21 mmol/L (23-31); Chloride 106 mmol/L (98-107); Glucose 155 mg/dL (80-115); Sodium 137 mmol/L (136-145)
[2020-12-01] MEDS: Famotidine 20 MG TAB PO SCH (08:15)
[2020-12-01] MEDS: Famotidine/PF 20 mg/2ml Vial SLOW IVP SCH (08:15)
[2020-12-01] MEDS ORDERED: Enoxaparin Sodium 40 MG/0.4 ML SYRINGE SC SCH ×2 (09:00→21:00)
[2020-12-01 12:02] VITALS: BP 128/76; TEMP 98.7
--- NOTE | 2020-12-01 12:51 | DIS ---
DATE OF ADMISSION: 11/30/2020 DATE OF DISCHARGE: 12/01/2020 ADMITTING DIAGNOSIS: Acute appendicitis with perforation. DISCHARGE DIAGNOSIS: Acute appendicitis with perforation. PROCEDURE PERFORMED: Laparoscopic appendectomy on 11/30/[address] Cullen. Please see a separate dictation for operative report. HISTORY AND HOSPITAL COURSE: A 65-year-old morbidly obese woman with BMI 38.4, who presented with abdominal pain. Clinical and radiographic examination were consistent with acute appendicitis, for which the patient was taken to the operating room for laparoscopic appendectomy. Findings in surgery included significant abdominal adhesions as well as purulent periappendiceal abscess. Following an uneventful laparoscopic appendectomy and lysis of adhesion, the patient was admitted to surgical floor, where she remained at the time of discharge. Postop day #1, she is ambulating with minimum difficulty. She is tolerating clear liquid diet. Urinary output is adequate for this patient's age and weight. She ambulates with minimum difficulty. She reports adequate pain control with oral analgesics. Abdominal examination reveals intact incisional wounds. Weston-Monet drain has returned 30 mL of serosanguineous fluid since placement. The drain was removed today without incident. DISCHARGE INSTRUCTIONS: The patient will be discharged home today with the following instructions; 1. She sees me in the Surgery Clinic in 2 weeks. 2. She is to avoid weight lifting in excess of 20 pounds until she has been released by me. She may shower effective tomorrow. 3. She is to avoid soaking herself in a bathtub or swimming for 2 weeks. She may take Tylenol 1000 mg p.o. q.6 hours alternating this with ibuprofen 600 mg p.o. q.8 hours p.r.n. pain. 4. She is also given a prescription for tramadol 50 mg #30 to be taken 1 to 2 p.o. q.6 hours p.r.n. breakthrough pain. 5. She is given a prescription for Augmentin 875 mg one p.o. b.i.d. for 7 days and also a prescription for Florastor 250 mg to be taken one p.o. daily. 6. The patient is to call me with any questions or problems including exacerbation of abdominal pain, intolerance to oral intake, fever in excess of 101 degrees Fahrenheit, or any drainage from incisional wounds. 7. The patient indicates understanding of information provided. 8. I have answered her questions. 9. She has expressed gratitude for the care rendered to her during this hospitalization and surgery. Job ID: [id number]
== END 2020-12-01 12:00 | disposition home or self-care (01) ==
LOC: SDC 15:41 → SJJU 18:52
PROVIDERS: ADMIT Surgery; ATTEND Surgery
PROC: 0DTJ4ZZ Resection of Appendix, Percutaneous Endoscopic Approach (ICD-10-PCS; principal; 2020-11-30)
DX: K35.32 Acute appendicitis with perforation, localized peritonitis, and gangrene, without abscess (principal); K66.0 Peritoneal adhesions (postprocedural) (postinfection); E66.01 Morbid (severe) obesity due to excess calories; Z68.38 Body mass index [BMI] 38.0-38.9, adult; Z20.822 Contact with and (suspected) exposure to COVID-19
CPT/HCPCS: 36415; 80048; 85025; 88304; 94660; 96365; 96375; 96376; G0378; J0694; J1100; J1200; J1650; J1885; J2250; J2405; J2543; J2704; J3010; J3490; S0020

== ENCOUNTER 2021-06-30 23:46 | Inpatient (IN) | payer OTHER ==
[2021-07-01] MEDS ORDERED: Enoxaparin Sodium 100 MG/ML SYRINGE ONE (01:19)
[2021-07-01 03:39] LABS: SARS-CoV-2 NAA Rapid Test DETECTED (NotDetected)
[2021-07-01] MEDS ORDERED: Dextrose 5 % And 0.9 % NaCl 1,000 ML IV SCH (03:45)
[2021-07-01] MEDS ORDERED: Ondansetron PF 4 MG/2 ML Vial IVP PRN (05:16)
[2021-07-01 05:36] LABS: #Lymphocytes 1.4 thou/uL (1.20-3.40); #Monocytes 0.6 thou/uL (0.11-0.59); #Neutrophils 4.8 thou/uL (1.40-6.50); %Basophils 0.1 % (0.0-1.0); %Eosinophils 0.1 % (0.0-10.0); %Lymphocytes 20.9 % (21.0-51.0); %Monocytes 8.9 % (0.0-10.0); %Neutrophils 70.1 % (42.0-75.0); Hemoglobin 14.7 g/dL (12.0-16.0); Mean Corpuscular HGB CONC 33.9 g/dL (32.0-36.0); Mean Corpuscular Hemoglobin 31.2 pg (27.0-31.0); Mean Platelet Volume 7.4 fL (7.4-10.4); Platelet Count 259 thou/uL (130-400); Red Blood Cell (RBC) Count 4.72 mill/uL (4.20-5.40); White Blood Cell (WBC) Count 6.9 thou/uL (4.8-10.8)
[2021-07-01] MEDS: Sodium Chloride 0.9% 1,000 ML IV SCH ×2 (05:46→16:59)
[2021-07-01 05:56] LABS: AST (SGOT) 125 U/L (5-34); Albumin 3.1 g/dL (3.4-4.8); Anion Gap 16 mmol/L (10-20); BUN (Urea Nitrogen) 49 mg/dL (9.8-20.1); Bilirubin, Total 0.4 mg/dL (0.2-1.2); Calc. Creatinine Clearance 47 mL/min (70-130); Calcium 9.4 mg/dL (7.8-10.44); Carbon Dioxide 15 mmol/L (23-31); Chloride 112 mmol/L (98-107); Globulin 3.4 g/dL (2.4-3.5); Glucose 121 mg/dL (80-115); Potassium 3.9 mmol/L (3.5-5.1); Protein, Total 6.5 g/dL (5.8-8.1); Sodium 139 mmol/L (136-145)
[2021-07-01] MEDS ORDERED: Loperamide HCl 1 MG/7.5 ML UDCUP PO PRN (06:08)
[2021-07-01] MEDS ORDERED: Benzonatate 100 MG CAP PO PRN (06:09)
[2021-07-01 06:11] LABS: ALT (SGPT) 73 U/L (8-55); Alkaline Phosphatase 114 U/L (40-110)
[2021-07-01] MEDS: Enoxaparin Sodium 40 MG/0.4 ML SYRINGE SC SCH ×2 (07:45→20:27)
[2021-07-01] MEDS: Zinc Sulfate 220 MG CAP PO SCH (07:45)
[2021-07-01] MEDS: Cholecalciferol 1,000 UNITS (25 MCG) TAB PO SCH (07:45)
[2021-07-01] MEDS: Ascorbic Acid 500 mg Chewable Tablet PO SCH (07:45)
[2021-07-01] MEDS ORDERED: Famotidine 20 MG TAB PO SCH (09:00)
[2021-07-01] MEDS ORDERED: Dexamethasone 10 MG/ML VIAL SLOW IVP SCH ×2 (09:00→21:00)
[2021-07-01] MEDS: methylPREDNISolone Sod Succ/PF 100 MG in Sodium Chloride 0.9% 250 ML 250 ML IVPB SCH (20:27)
[2021-07-01] MEDS: Colchicine 0.6 MG TAB PO SCH (20:27)
[2021-07-01] MEDS: Sodium Bicarbonate Tab 325 MG TAB PO SCH (20:27)
[2021-07-02] MEDS: Acetaminophen 325 MG TAB PO PRN ×2 (03:16→22:15)
[2021-07-02 04:04] LABS: #Lymphocytes 0.6 thou/uL (1.20-3.40); #Monocytes 0.4 thou/uL (0.11-0.59); #Neutrophils 3.3 thou/uL (1.40-6.50); %Basophils 0.4 % (0.0-1.0); %Eosinophils 0.1 % (0.0-10.0); %Lymphocytes 13.6 % (21.0-51.0); %Neutrophils 75.9 % (42.0-75.0); Hemoglobin 13.4 g/dL (12.0-16.0); Mean Corpuscular HGB CONC 34.5 g/dL (32.0-36.0); Mean Corpuscular Hemoglobin 31.9 pg (27.0-31.0); Mean Corpuscular Volume 92.5 fL (78.0-98.0); Mean Platelet Volume 7.5 fL (7.4-10.4); Platelet Count 242 thou/uL (130-400); RBC Distribution Width 11.9 % (11.5-14.5); Red Blood Cell (RBC) Count 4.19 mill/uL (4.20-5.40); White Blood Cell (WBC) Count 4.4 thou/uL (4.8-10.8)
[2021-07-02 04:26] LABS: ALT (SGPT) 115 U/L (8-55); AST (SGOT) 144 U/L (5-34); Albumin 2.8 g/dL (3.4-4.8); Alkaline Phosphatase 105 U/L (40-110); Anion Gap 13 mmol/L (10-20); BUN (Urea Nitrogen) 38 mg/dL (9.8-20.1); Bilirubin, Total 0.4 mg/dL (0.2-1.2); Calc. Creatinine Clearance 83 mL/min (70-130); Carbon Dioxide 19 mmol/L (23-31); Chloride 117 mmol/L (98-107); Globulin 3.2 g/dL (2.4-3.5); Glucose 171 mg/dL (80-115); Potassium 3.9 mmol/L (3.5-5.1); Sodium 145 mmol/L (136-145)
[2021-07-02] MEDS: Sodium Chloride 0.9% 1,000 ML IV SCH (06:24)
[2021-07-02] MEDS: Sodium Bicarbonate Tab 325 MG TAB PO SCH ×2 (08:52→21:17)
[2021-07-02] MEDS: Zinc Sulfate 220 MG CAP PO SCH (08:52)
[2021-07-02] MEDS: Cholecalciferol 1,000 UNITS (25 MCG) TAB PO SCH (08:52)
[2021-07-02] MEDS: Ascorbic Acid 500 mg Chewable Tablet PO SCH (08:52)
[2021-07-02] MEDS: Colchicine 0.6 MG TAB PO SCH ×2 (08:53→21:17)
[2021-07-02] MEDS: Enoxaparin Sodium 40 MG/0.4 ML SYRINGE SC SCH ×2 (08:53→21:17)
[2021-07-02] MEDS ORDERED: BARICITINIB 1 MG TAB PO SCH (09:00)
[2021-07-02] MEDS: BARICITINIB 2 MG TAB PO SCH (09:49)
[2021-07-02] MEDS: methylPREDNISolone Sod Succ/PF 100 MG in Sodium Chloride 0.9% 250 ML 250 ML IVPB SCH (17:40)
[2021-07-03] MEDS: hydrALAZINE 20 MG/ML VIAL SLOW IVP PRN ×3 (00:35→10:21)
[2021-07-03] MEDS ORDERED: Guaifenesin DM 100-10/5 ML UDCUP PO PRN (03:03)
[2021-07-03 04:03] LABS: #Lymphocytes 1.1 thou/uL (1.20-3.40); #Monocytes 0.8 thou/uL (0.11-0.59); #Neutrophils 9.1 thou/uL (1.40-6.50); %Basophils 0.2 % (0.0-1.0); %Eosinophils 0.1 % (0.0-10.0); %Lymphocytes 9.9 % (21.0-51.0); %Monocytes 7.5 % (0.0-10.0); %Neutrophils 82.4 % (42.0-75.0); Hemoglobin 14.7 g/dL (12.0-16.0); Mean Corpuscular HGB CONC 33.5 g/dL (32.0-36.0); Mean Corpuscular Hemoglobin 31.4 pg (27.0-31.0); Mean Corpuscular Volume 93.7 fL (78.0-98.0); Mean Platelet Volume 7.7 fL (7.4-10.4); Platelet Count 239 thou/uL (130-400); RBC Distribution Width 12.1 % (11.5-14.5); Red Blood Cell (RBC) Count 4.69 mill/uL (4.20-5.40)
[2021-07-03 04:23] LABS: ALT (SGPT) 111 U/L (8-55); AST (SGOT) 99 U/L (5-34); Albumin 2.8 g/dL (3.4-4.8); Alkaline Phosphatase 131 U/L (40-110); Anion Gap 12 mmol/L (10-20); BUN (Urea Nitrogen) 35 mg/dL (9.8-20.1); Bilirubin, Total 0.5 mg/dL (0.2-1.2); Calc. Creatinine Clearance 97 mL/min (70-130); Calcium 10.2 mg/dL (7.8-10.44); Carbon Dioxide 21 mmol/L (23-31); Chloride 119 mmol/L (98-107); Globulin 3.1 g/dL (2.4-3.5); Glucose 157 mg/dL (80-115); Potassium 3.8 mmol/L (3.5-5.1); Protein, Total 5.9 g/dL (5.8-8.1); Sodium 148 mmol/L (136-145)
[2021-07-03] MEDS: Sodium Chloride 0.9% 1,000 ML IV SCH ×2 (05:56→18:00)
[2021-07-03] MEDS: Dextrose 5% in Water 1,000 ML IV SCH ×2 (06:44→22:42)
[2021-07-03] MEDS: Zinc Sulfate 220 MG CAP PO SCH (10:20)
[2021-07-03] MEDS: Ascorbic Acid 500 mg Chewable Tablet PO SCH (10:20)
[2021-07-03] MEDS: BARICITINIB 2 MG TAB PO SCH (10:21)
[2021-07-03] MEDS: Cholecalciferol 1,000 UNITS (25 MCG) TAB PO SCH (10:21)
[2021-07-03] MEDS: Colchicine 0.6 MG TAB PO SCH ×2 (10:21→20:48)
[2021-07-03] MEDS: Enoxaparin Sodium 40 MG/0.4 ML SYRINGE SC SCH ×2 (10:21→20:48)
[2021-07-03] MEDS ORDERED: Rocuronium Bromide 50 MG/5 ML VIAL IVP SCH (19:25)
[2021-07-03] MEDS ORDERED: Propofol 1,000 MG/100 ML VIAL IV ONE (19:26)
[2021-07-03] MEDS ORDERED: Lorazepam 2 MG/ML VIAL ONE (19:35)
[2021-07-03 19:53] LABS: Actual Bicarbonate (HCO3a) 25.5 mEq/L (22-28); Calcium, Ionized (arterial) 1.36 mmol/L (1.12-1.30); Carboxyhemoglobin (COHb) 0.4 gm% (0.0-3.0); Hemoglobin (Hb) 15.2 g/dL (12.0-16.0); O2 Tension (PaO2), arterial 65.5 mmHg (> 80.0); Potassium - ABG Lab 3.61 mmol/L (3.70-5.30); pH, Arterial 7.42 (7.35-7.45)
[2021-07-03] MEDS ORDERED: Vecuronium 10 MG VIAL ONE (19:59)
[2021-07-03] MEDS ORDERED: Sterile Water 10 ML ONE (19:59)
[2021-07-03] MEDS: Vecuronium 10 MG VIAL IVP PRN (20:00)
[2021-07-03 20:28] LABS: Puncture Site RRA
[2021-07-03] MEDS: Propofol 1,000 MG/100 ML VIAL IV PRN (20:30)
[2021-07-03] MEDS ORDERED: Fentanyl CADD 100 ML ONE (20:39)
[2021-07-03] MEDS ORDERED: Propofol BOLUS 1,000 MG/100 ML VIAL IV PRN (20:45)
[2021-07-03] MEDS ORDERED: DISCONTINUE PREVIOUS NARCOTIC PAIN MEDICATIONS AND BENZODIAZEPINES FS SCH (20:45)
[2021-07-03] MEDS ORDERED: Fentanyl BOLUS 250 ML IVPB PRN (20:45)
[2021-07-03] MEDS: Fentanyl CADD 100 ML IV SCH (20:47)
[2021-07-03] MEDS: methylPREDNISolone Sod Succ/PF 100 MG in Sodium Chloride 0.9% 250 ML 250 ML IVPB SCH (20:56)
[2021-07-04] MEDS: Dextrose 5% in Water 1,000 ML IV SCH ×2 (00:01→13:17)
[2021-07-04] MEDS: Vecuronium 10 MG VIAL IVP PRN ×5 (03:43→20:23)
[2021-07-04] MEDS: Propofol 1,000 MG/100 ML VIAL IV PRN ×2 (05:28→21:26)
[2021-07-04 07:28] LABS: Hemoglobin 12.5 g/dL (12.0-16.0); Mean Corpuscular Hemoglobin 31.8 pg (27.0-31.0); Mean Corpuscular Volume 93.6 fL (78.0-98.0); Platelet Count 202 thou/uL (130-400); RBC Distribution Width 11.9 % (11.5-14.5); Red Blood Cell (RBC) Count 3.92 mill/uL (4.20-5.40); White Blood Cell (WBC) Count 12.8 thou/uL (4.8-10.8)
[2021-07-04 07:43] LABS: ALT (SGPT) 169 U/L (8-55); AST (SGOT) 122 U/L (5-34); Albumin 2.4 g/dL (3.4-4.8); Alkaline Phosphatase 150 U/L (40-110); Bilirubin, Direct 0.8 mg/dL (0.1-0.3); Bilirubin, Total 1.2 mg/dL (0.2-1.2); Protein, Total 5.1 g/dL (5.8-8.1)
[2021-07-04 07:44] LABS: ALT (SGPT) 165 U/L (8-55); AST (SGOT) 121 U/L (5-34); Albumin 2.5 g/dL (3.4-4.8); Alkaline Phosphatase 155 U/L (40-110); Anion Gap 11 mmol/L (10-20); BUN (Urea Nitrogen) 31 mg/dL (9.8-20.1); Bilirubin, Total 1.2 mg/dL (0.2-1.2); Calc. Creatinine Clearance 85 mL/min (70-130); Calcium 9.6 mg/dL (7.8-10.44); Carbon Dioxide 25 mmol/L (23-31); Chloride 113 mmol/L (98-107); Globulin 2.7 g/dL (2.4-3.5); Glucose 244 mg/dL (80-115); Potassium 3.8 mmol/L (3.5-5.1); Protein, Total 5.2 g/dL (5.8-8.1); Sodium 145 mmol/L (136-145)
[2021-07-04] MEDS: Sodium Chloride 0.9% 1,000 ML IV SCH (08:50)
[2021-07-04 08:51] LABS: Band 12 % (5-11); Lymphocytes 9 % (21-51); MDiff Complete? YES; Monocytes 2 % (0-10); Neutrophil 76 % (42-75); Platelet Morphology Comment Appears Adequate; RBC Morphology Normal; Reactive Lymphocytes 1 % (0-10)
[2021-07-04] MEDS: Ascorbic Acid 500 mg Chewable Tablet PO SCH (08:51)
[2021-07-04] MEDS: Colchicine 0.6 MG TAB PO SCH ×2 (08:51→19:45)
[2021-07-04] MEDS: Enoxaparin Sodium 40 MG/0.4 ML SYRINGE SC SCH ×2 (08:51→19:44)
[2021-07-04] MEDS: BARICITINIB 2 MG TAB PO SCH (08:51)
[2021-07-04] MEDS: Zinc Sulfate 220 MG CAP PO SCH (08:52)
[2021-07-04] MEDS: Cholecalciferol 1,000 UNITS (25 MCG) TAB PO SCH (08:52)
[2021-07-04 09:07] LABS: Actual Bicarbonate (HCO3a) 26.4 mEq/L (22-28); Base Excess (BEa) 1.8 mEq/L (-2.0 to +3.0); CO2 Tension 41.7 mmHg (35.0-45.0); Calcium, Ionized (arterial) 1.33 mmol/L (1.12-1.30); Carboxyhemoglobin (COHb) 0.9 gm% (0.0-3.0); Hemoglobin (Hb) 12.9 g/dL (12.0-16.0); O2 Tension (PaO2), arterial 64.8 mmHg (> 80.0); Potassium - ABG Lab 3.77 mmol/L (3.70-5.30); pH, Arterial 7.42 (7.35-7.45)
[2021-07-04 09:13] LABS: ALV-art Gradient 239.575 mmHg (0-20); Puncture Site RRA
[2021-07-04] MEDS: Lorazepam 2 MG/ML VIAL SLOW IVP PRN ×2 (12:12→22:40)
[2021-07-04] MEDS ORDERED: Fentanyl CADD 100 ML ONE (13:12)
[2021-07-04] MEDS: Fentanyl CADD 100 ML IV SCH (13:16)
[2021-07-04] MEDS: methylPREDNISolone Sod Succ/PF 100 MG in Sodium Chloride 0.9% 250 ML 250 ML IVPB SCH (19:44)
[2021-07-05] MEDS: Vecuronium 10 MG VIAL IVP PRN ×3 (00:04→14:38)
[2021-07-05] MEDS: Dextrose 5% in Water 1,000 ML IV SCH ×2 (01:00→05:28)
[2021-07-05] MEDS: hydrALAZINE 20 MG/ML VIAL SLOW IVP PRN ×2 (01:12→23:04)
[2021-07-05 04:41] LABS: Anion Gap 9 mmol/L (10-20); BUN (Urea Nitrogen) 34 mg/dL (9.8-20.1); Calc. Creatinine Clearance 82 mL/min (70-130); Calcium 8.9 mg/dL (7.8-10.44); Carbon Dioxide 23 mmol/L (23-31); Chloride 101 mmol/L (98-107); Glucose 508 mg/dL (80-115); Potassium 3.4 mmol/L (3.5-5.1); Sodium 130 mmol/L (136-145)
[2021-07-05 04:43] LABS: ALT (SGPT) 220 U/L (8-55); AST (SGOT) 141 U/L (5-34); Albumin 2.2 g/dL (3.4-4.8); Alkaline Phosphatase 121 U/L (40-110); Bilirubin, Total 1.6 mg/dL (0.2-1.2); Magnesium 1.8 mg/dL (1.6-2.6); Protein, Total 4.7 g/dL (5.8-8.1)
[2021-07-05] MEDS ORDERED: Fentanyl CADD 100 ML ONE ×2 (04:55→20:50)
[2021-07-05 04:57] LABS: Hemoglobin 11.3 g/dL (12.0-16.0); Mean Corpuscular HGB CONC 33.6 g/dL (32.0-36.0); Mean Corpuscular Hemoglobin 31.4 pg (27.0-31.0); Mean Corpuscular Volume 93.5 fL (78.0-98.0); Mean Platelet Volume 8.5 fL (7.4-10.4); Platelet Count 159 thou/uL (130-400); RBC Distribution Width 11.9 % (11.5-14.5); Red Blood Cell (RBC) Count 3.61 mill/uL (4.20-5.40); White Blood Cell (WBC) Count 10.9 thou/uL (4.8-10.8)
[2021-07-05 04:58] LABS: Band 3 % (5-11); Lymphocytes 8 % (21-51); MDiff Complete? YES; Metamyelocyte 1 % (0-0); Monocytes 4 % (0-10); Neutrophil 82 % (42-75); Platelet Morphology Comment Appears Adequate; RBC Morphology Normal; Reactive Lymphocytes 2 % (0-10)
[2021-07-05] MEDS: Fentanyl CADD 100 ML IV SCH ×2 (04:58→20:53)
[2021-07-05] MEDS ORDERED: Potassium Chloride 20 MEQ in Premix Bag 1 BAG IVPB SCH (06:15)
[2021-07-05] MEDS: Sodium Chloride 0.9% 1,000 ML IV SCH ×3 (06:46→22:33)
[2021-07-05 08:29] LABS: Actual Bicarbonate (HCO3a) 22.1 mEq/L (22-28); CO2 Tension 29.7 mmHg (35.0-45.0); Calcium, Ionized (arterial) 1.33 mmol/L (1.12-1.30); O2 Tension (PaO2), arterial 86.5 mmHg (> 80.0); Potassium - ABG Lab 3.67 mmol/L (3.70-5.30); pH, Arterial 7.49 (7.35-7.45)
[2021-07-05 08:34] LABS: ALV-art Gradient 232.875 mmHg (0-20); Puncture Site RRA
[2021-07-05] MEDS: Cholecalciferol 1,000 UNITS (25 MCG) TAB PO SCH (09:14)
[2021-07-05] MEDS: Ascorbic Acid 500 mg Chewable Tablet PO SCH (09:14)
[2021-07-05] MEDS: Enoxaparin Sodium 40 MG/0.4 ML SYRINGE SC SCH ×2 (09:14→20:26)
[2021-07-05] MEDS: Zinc Sulfate 220 MG CAP PO SCH (09:14)
[2021-07-05] MEDS: Colchicine 0.6 MG TAB PO SCH ×2 (09:17→20:26)
[2021-07-05] MEDS: BARICITINIB 2 MG TAB PO SCH (09:17)
[2021-07-05] MEDS: Propofol 1,000 MG/100 ML VIAL IV PRN ×2 (12:36→23:05)
[2021-07-05] MEDS: Lorazepam 2 MG/ML VIAL SLOW IVP PRN ×2 (14:38→20:11)
[2021-07-05] MEDS: methylPREDNISolone Sod Succ/PF 100 MG in Sodium Chloride 0.9% 250 ML 250 ML IVPB SCH (20:26)
[2021-07-06] MEDS: Lorazepam 2 MG/ML VIAL SLOW IVP PRN (02:28)
[2021-07-06 04:28] LABS: Anion Gap 9 mmol/L (10-20); BUN (Urea Nitrogen) 34 mg/dL (9.8-20.1); Calc. Creatinine Clearance 102 mL/min (70-130); Calcium 9.5 mg/dL (7.8-10.44); Carbon Dioxide 23 mmol/L (23-31); Chloride 113 mmol/L (98-107); Glucose 155 mg/dL (80-115); Magnesium 1.9 mg/dL (1.6-2.6); Potassium 4.4 mmol/L (3.5-5.1); Sodium 141 mmol/L (136-145)
[2021-07-06 04:49] LABS: Hemoglobin 11.8 g/dL (12.0-16.0); Mean Corpuscular HGB CONC 33.4 g/dL (32.0-36.0); Mean Corpuscular Hemoglobin 30.9 pg (27.0-31.0); Mean Corpuscular Volume 92.6 fL (78.0-98.0); Mean Platelet Volume 9.1 fL (7.4-10.4); Platelet Count 153 thou/uL (130-400); RBC Distribution Width 11.7 % (11.5-14.5); Red Blood Cell (RBC) Count 3.83 mill/uL (4.20-5.40); White Blood Cell (WBC) Count 12.4 thou/uL (4.8-10.8)
[2021-07-06 05:20] LABS: Band 14 % (5-11); Lymphocytes 7 % (21-51); MDiff Complete? YES; Monocytes 4 % (0-10); Neutrophil 75 % (42-75)
[2021-07-06 07:32] LABS: ALT (SGPT) 291 U/L (8-55); AST (SGOT) 155 U/L (5-34); Albumin 2.3 g/dL (3.4-4.8); Alkaline Phosphatase 123 U/L (40-110); Protein, Total 5.2 g/dL (5.8-8.1)
[2021-07-06] MEDS: Sodium Chloride 0.9% 1,000 ML IV SCH ×3 (08:48→21:27)
[2021-07-06] MEDS: Enoxaparin Sodium 40 MG/0.4 ML SYRINGE SC SCH ×2 (09:07→21:27)
[2021-07-06] MEDS: Colchicine 0.6 MG TAB PO SCH ×2 (09:07→21:32)
[2021-07-06] MEDS: Cholecalciferol 1,000 UNITS (25 MCG) TAB PO SCH (09:08)
[2021-07-06] MEDS: Ascorbic Acid 500 mg Chewable Tablet PO SCH (09:08)
[2021-07-06] MEDS: Zinc Sulfate 220 MG CAP PO SCH (09:08)
[2021-07-06] MEDS: hydrALAZINE 20 MG/ML VIAL SLOW IVP PRN ×2 (09:27→22:54)
[2021-07-06] MEDS ORDERED: Fentanyl CADD 100 ML ONE (10:58)
[2021-07-06] MEDS: Fentanyl CADD 100 ML IV SCH (11:02)
[2021-07-06] MEDS: Propofol 1,000 MG/100 ML VIAL IV PRN (16:32)
[2021-07-06] MEDS: methylPREDNISolone Sod Succ/PF 100 MG in Sodium Chloride 0.9% 250 ML 250 ML IVPB SCH (20:02)
[2021-07-06] MEDS ORDERED: Electrolyte Replacement Protocol 1 EACH FS SCH (23:30)
[2021-07-07] MEDS ORDERED: Fentanyl CADD 100 ML ONE ×2 (02:27→19:05)
[2021-07-07] MEDS: Fentanyl CADD 100 ML IV SCH ×2 (03:14→19:11)
[2021-07-07] MEDS: Propofol 1,000 MG/100 ML VIAL IV PRN ×2 (03:14→14:19)
[2021-07-07 04:35] LABS: Anion Gap 11 mmol/L (10-20); BUN (Urea Nitrogen) 32 mg/dL (9.8-20.1); Calc. Creatinine Clearance 106 mL/min (70-130); Calcium 9.7 mg/dL (7.8-10.44); Carbon Dioxide 24 mmol/L (23-31); Chloride 114 mmol/L (98-107); Glucose 177 mg/dL (80-115); Potassium 4.3 mmol/L (3.5-5.1); Sodium 145 mmol/L (136-145)
[2021-07-07 04:38] LABS: ALT (SGPT) 324 U/L (8-55); AST (SGOT) 136 U/L (5-34); Albumin 2.6 g/dL (3.4-4.8); Alkaline Phosphatase 136 U/L (40-110); Bilirubin, Direct 1.3 mg/dL (0.1-0.3); Bilirubin, Total 1.9 mg/dL (0.2-1.2); Protein, Total 5.4 g/dL (5.8-8.1)
[2021-07-07 04:39] LABS: Phosphorus 2.5 mg/dL (2.3-4.7)
[2021-07-07] MEDS: Sodium Chloride 0.9% 1,000 ML IV SCH ×2 (05:07→17:17)
[2021-07-07 05:10] LABS: Band 28 % (5-11); Large Platelets SLIGHT; Lymphocytes 4 % (21-51); MDiff Complete? YES; Mean Corpuscular HGB CONC 34.3 g/dL (32.0-36.0); Mean Corpuscular Hemoglobin 32.3 pg (27.0-31.0); Mean Corpuscular Volume 94.1 fL (78.0-98.0); Mean Platelet Volume 9.8 fL (7.4-10.4); Monocytes 3 % (0-10); Neutrophil 65 % (42-75); Platelet Count 172 thou/uL (130-400); Platelet Morphology Comment Appears Adequate; Polychromasia SLIGHT = 2-3 cells (100X) (0-2/hpf); RBC Distribution Width 11.7 % (11.5-14.5); White Blood Cell (WBC) Count 17.5 thou/uL (4.8-10.8)
[2021-07-07] MEDS ORDERED: Magnesium 2 GM/50 ML 2 GM in Premix Bag 1 BAG IVPB SCH (06:45)
[2021-07-07] MEDS: Ascorbic Acid 500 mg Chewable Tablet PO SCH (08:07)
[2021-07-07] MEDS: Zinc Sulfate 220 MG CAP PO SCH (08:07)
[2021-07-07] MEDS: Lorazepam 2 MG/ML VIAL SLOW IVP PRN ×2 (08:07→21:04)
[2021-07-07] MEDS: hydrALAZINE 20 MG/ML VIAL SLOW IVP PRN (08:07)
[2021-07-07] MEDS: Enoxaparin Sodium 40 MG/0.4 ML SYRINGE SC SCH ×2 (08:08→21:04)
[2021-07-07] MEDS: Cholecalciferol 1,000 UNITS (25 MCG) TAB PO SCH (08:08)
[2021-07-07] MEDS: Colchicine 0.6 MG TAB PO SCH ×2 (08:08→21:04)
[2021-07-07 12:12] LABS: Actual Bicarbonate (HCO3a) 24.9 mEq/L (22-28); Base Excess (BEa) 0.7 mEq/L (-2.0 to +3.0); CO2 Tension 38.6 mmHg (35.0-45.0); Calcium, Ionized (arterial) 1.41 mmol/L (1.12-1.30); Carboxyhemoglobin (COHb) 0.6 gm% (0.0-3.0); Hemoglobin (Hb) 11.5 g/dL (12.0-16.0); O2 Tension (PaO2), arterial 62.1 mmHg (> 80.0); Potassium - ABG Lab 4.19 mmol/L (3.70-5.30); pH, Arterial 7.43 (7.35-7.45)
[2021-07-07 13:02] LABS: Puncture Site LBA
[2021-07-07] MEDS ORDERED: Pharmacy to Dose : CEFEPIME IVPB PRN (20:16)
[2021-07-07] MEDS: CEFEPIME HCL IN DEXTROSE 5 % 1 GM in Premix Bag 1 BAG IVPB SCH (21:04)
[2021-07-07] MEDS: methylPREDNISolone Sod Succ/PF 100 MG in Sodium Chloride 0.9% 250 ML 250 ML IVPB SCH (21:09)
[2021-07-08] MEDS: Sodium Chloride 0.9% 1,000 ML IV SCH ×2 (00:04→06:10)
[2021-07-08] MEDS: Propofol 1,000 MG/100 ML VIAL IV PRN ×3 (01:12→20:05)
[2021-07-08 05:27] LABS: Hemoglobin 10.4 g/dL (12.0-16.0); Mean Corpuscular HGB CONC 33.1 g/dL (32.0-36.0); Mean Corpuscular Hemoglobin 31.6 pg (27.0-31.0); Mean Corpuscular Volume 95.3 fL (78.0-98.0); Mean Platelet Volume 10.1 fL (7.4-10.4); Platelet Count 157 thou/uL (130-400); RBC Distribution Width 11.8 % (11.5-14.5); White Blood Cell (WBC) Count 11.2 thou/uL (4.8-10.8)
[2021-07-08 05:49] LABS: ALT (SGPT) 280 U/L (8-55); AST (SGOT) 83 U/L (5-34); Albumin 2.2 g/dL (3.4-4.8); Alkaline Phosphatase 113 U/L (40-110); Anion Gap 6 mmol/L (10-20); BUN (Urea Nitrogen) 36 mg/dL (9.8-20.1); Bilirubin, Total 1.1 mg/dL (0.2-1.2); Calc. Creatinine Clearance 0 mL/min (70-130); Calcium 9.3 mg/dL (7.8-10.44); Carbon Dioxide 26 mmol/L (23-31); Chloride 117 mmol/L (98-107); Globulin 2.5 g/dL (2.4-3.5); Glucose 232 mg/dL (80-115); Magnesium 2.4 mg/dL (1.6-2.6); Phosphorus 2.6 mg/dL (2.3-4.7); Potassium 4.5 mmol/L (3.5-5.1); Protein, Total 4.7 g/dL (5.8-8.1); Sodium 144 mmol/L (136-145)
[2021-07-08 05:52] LABS: ALT (SGPT) 279 U/L (8-55); AST (SGOT) 83 U/L (5-34); Albumin 2.3 g/dL (3.4-4.8); Alkaline Phosphatase 113 U/L (40-110); Bilirubin, Direct 0.6 mg/dL (0.1-0.3); Protein, Total 4.8 g/dL (5.8-8.1)
[2021-07-08] MEDS: Colchicine 0.6 MG TAB PO SCH (08:39)
[2021-07-08] MEDS: CEFEPIME HCL IN DEXTROSE 5 % 1 GM in Premix Bag 1 BAG IVPB SCH (08:39)
[2021-07-08] MEDS: Cholecalciferol 1,000 UNITS (25 MCG) TAB PO SCH (08:39)
[2021-07-08] MEDS: Pantoprazole 40 MG VIAL IVP SCH (08:39)
[2021-07-08] MEDS: Ascorbic Acid 500 mg Chewable Tablet PO SCH (08:39)
[2021-07-08] MEDS: Enoxaparin Sodium 40 MG/0.4 ML SYRINGE SC SCH ×2 (08:39→20:05)
[2021-07-08] MEDS: Zinc Sulfate 220 MG CAP PO SCH (08:39)
[2021-07-08 08:55] LABS: Base Excess (BEa) -1.2 mEq/L (-2.0 to +3.0); CO2 Tension 36.4 mmHg (35.0-45.0); Calcium, Ionized (arterial) 1.41 mmol/L (1.12-1.30); Carboxyhemoglobin (COHb) 0.3 gm% (0.0-3.0); Hemoglobin (Hb) 11.1 g/dL (12.0-16.0); O2 Tension (PaO2), arterial 66.3 mmHg (> 80.0); Potassium - ABG Lab 4.38 mmol/L (3.70-5.30); pH, Arterial 7.42 (7.35-7.45)
[2021-07-08] MEDS: hydrALAZINE 20 MG/ML VIAL SLOW IVP PRN (09:08)
[2021-07-08 09:30] LABS: Puncture Site LRA
[2021-07-08] MEDS: Lorazepam 2 MG/ML VIAL SLOW IVP PRN (10:44)
[2021-07-08] MEDS ORDERED: Furosemide 40 MG/4 ML VIAL SLOW IVP SCH ×2 (10:45→18:00)
[2021-07-08] MEDS ORDERED: Fentanyl CADD 100 ML ONE (11:18)
[2021-07-08] MEDS: Fentanyl CADD 100 ML IV SCH (11:22)
[2021-07-08 12:06] LABS: Band 3 % (5-11); Large Platelets SLIGHT; Lymphocytes 4 % (21-51); MDiff Complete? YES; Monocytes 10 % (0-10); Neutrophil 83 % (42-75); Platelet Morphology Comment Appears Increased; Reflex for Review?? YES; Vacuoles SLIGHT
[2021-07-08] MEDS: methylPREDNISolone Sod Succ/PF 100 MG in Sodium Chloride 0.9% 250 ML 250 ML IVPB SCH (20:38)
[2021-07-09] MEDS: Lorazepam 2 MG/ML VIAL SLOW IVP PRN ×5 (00:19→18:54)
[2021-07-09] MEDS ORDERED: Fentanyl CADD 100 ML ONE ×2 (02:57→19:16)
[2021-07-09] MEDS: Fentanyl CADD 100 ML IV SCH ×2 (03:06→19:18)
[2021-07-09 04:13] LABS: Phosphorus 2.3 mg/dL (2.3-4.7)
[2021-07-09 04:18] LABS: ALT (SGPT) 241 U/L (8-55); AST (SGOT) 45 U/L (5-34); Albumin 2.3 g/dL (3.4-4.8); Alkaline Phosphatase 104 U/L (40-110); Anion Gap 8 mmol/L (10-20); BUN (Urea Nitrogen) 37 mg/dL (9.8-20.1); Bilirubin, Direct 0.5 mg/dL (0.1-0.3); Bilirubin, Total 0.8 mg/dL (0.2-1.2); Calc. Creatinine Clearance 120 mL/min (70-130); Calcium 9.7 mg/dL (7.8-10.44); Carbon Dioxide 29 mmol/L (23-31); Chloride 111 mmol/L (98-107); Globulin 2.6 g/dL (2.4-3.5); Glucose 257 mg/dL (80-115); Magnesium 2.2 mg/dL (1.6-2.6); Potassium 4.1 mmol/L (3.5-5.1); Protein, Total 4.9 g/dL (5.8-8.1); Sodium 144 mmol/L (136-145)
[2021-07-09] MEDS: Propofol 1,000 MG/100 ML VIAL IV PRN ×3 (05:30→20:08)
[2021-07-09 05:33] LABS: Hemoglobin 11.3 g/dL (12.0-16.0); Mean Corpuscular HGB CONC 33.4 g/dL (32.0-36.0); Mean Corpuscular Hemoglobin 31.9 pg (27.0-31.0); Mean Corpuscular Volume 95.6 fL (78.0-98.0); Mean Platelet Volume 10.4 fL (7.4-10.4); Platelet Count 193 thou/uL (130-400); RBC Distribution Width 11.8 % (11.5-14.5); Red Blood Cell (RBC) Count 3.54 mill/uL (4.20-5.40)
[2021-07-09] MEDS: hydrALAZINE 20 MG/ML VIAL SLOW IVP PRN ×2 (05:38→14:35)
[2021-07-09 06:32] LABS: Band 4 % (5-11); Lymphocytes 3 % (21-51); Metamyelocyte 1 % (0-0); Monocytes 1 % (0-10); Neutrophil 91 % (42-75)
[2021-07-09 06:45] LABS: MDiff Complete? YES
[2021-07-09 07:51] LABS: Actual Bicarbonate (HCO3a) 28.5 mEq/L (22-28); Base Excess (BEa) 4.5 mEq/L (-2.0 to +3.0); CO2 Tension 40.3 mmHg (35.0-45.0); Calcium, Ionized (arterial) 1.41 mmol/L (1.12-1.30); Carboxyhemoglobin (COHb) 0.7 gm% (0.0-3.0); Hemoglobin (Hb) 12.3 g/dL (12.0-16.0); O2 Tension (PaO2), arterial 62.6 mmHg (> 80.0); Potassium - ABG Lab 4.02 mmol/L (3.70-5.30); pH, Arterial 7.47 (7.35-7.45)
[2021-07-09 08:01] LABS: ALV-art Gradient 243.525 mmHg (0-20); Puncture Site RRA
[2021-07-09] MEDS: Enoxaparin Sodium 40 MG/0.4 ML SYRINGE SC SCH ×2 (08:16→20:08)
[2021-07-09] MEDS: Ascorbic Acid 500 mg Chewable Tablet PO SCH (08:16)
[2021-07-09] MEDS: Cholecalciferol 1,000 UNITS (25 MCG) TAB PO SCH (08:16)
[2021-07-09] MEDS: Zinc Sulfate 220 MG CAP PO SCH (08:16)
[2021-07-09] MEDS: Pantoprazole 40 MG VIAL IVP SCH (08:17)
[2021-07-09] MEDS: Vecuronium 10 MG VIAL IVP PRN ×2 (10:49→19:20)
[2021-07-09] MEDS: methylPREDNISolone Sod Succ/PF 100 MG in Sodium Chloride 0.9% 250 ML 250 ML IVPB SCH (20:08)
[2021-07-10] MEDS: Lorazepam 2 MG/ML VIAL SLOW IVP PRN ×2 (01:09→19:46)
[2021-07-10] MEDS: Propofol 1,000 MG/100 ML VIAL IV PRN ×3 (04:03→19:44)
[2021-07-10 04:40] LABS: Hemoglobin 10.6 g/dL (12.0-16.0); Mean Corpuscular HGB CONC 33.8 g/dL (32.0-36.0); Mean Corpuscular Hemoglobin 32.5 pg (27.0-31.0); Mean Platelet Volume 10.3 fL (7.4-10.4); Platelet Count 194 thou/uL (130-400); RBC Distribution Width 11.8 % (11.5-14.5); Red Blood Cell (RBC) Count 3.26 mill/uL (4.20-5.40); White Blood Cell (WBC) Count 9.8 thou/uL (4.8-10.8)
[2021-07-10 04:50] LABS: Anion Gap 8 mmol/L (10-20); BUN (Urea Nitrogen) 40 mg/dL (9.8-20.1); Calc. Creatinine Clearance 124 mL/min (70-130); Calcium 10.1 mg/dL (7.8-10.44); Carbon Dioxide 31 mmol/L (23-31); Chloride 109 mmol/L (98-107); Glucose 262 mg/dL (80-115); Potassium 4.5 mmol/L (3.5-5.1); Sodium 143 mmol/L (136-145)
[2021-07-10 06:45] LABS: Band 5 % (5-11); Lymphocytes 7 % (21-51); MDiff Complete? YES; Neutrophil 88 % (42-75)
[2021-07-10] MEDS ORDERED: Fentanyl CADD 100 ML ONE ×2 (07:59→21:10)
[2021-07-10] MEDS: Enoxaparin Sodium 40 MG/0.4 ML SYRINGE SC SCH ×2 (08:06→19:44)
[2021-07-10] MEDS: Zinc Sulfate 220 MG CAP PO SCH (08:07)
[2021-07-10] MEDS: Cholecalciferol 1,000 UNITS (25 MCG) TAB PO SCH (08:07)
[2021-07-10] MEDS: Ascorbic Acid 500 mg Chewable Tablet PO SCH (08:07)
[2021-07-10] MEDS: Pantoprazole 40 MG VIAL IVP SCH (08:07)
[2021-07-10] MEDS: Fentanyl CADD 100 ML IV SCH ×2 (08:08→21:15)
[2021-07-10] MEDS ORDERED: Dextrose 50% Abboject 50 ML SYRINGE IVP PRN (09:45)
[2021-07-10] MEDS ORDERED: Dextrose 5% in Water 1,000 ML IV PRN (09:45)
[2021-07-10] MEDS ORDERED: NPH, Human Insulin Isophane 300 UNIT/3 ML VIAL SC SCH (14:30)
[2021-07-10] MEDS: Insulin Regular 300 UNITS/3 ML VIAL SC PRN ×2 (15:27→22:46)
[2021-07-10] MEDS: methylPREDNISolone Sod Succ/PF 100 MG in Sodium Chloride 0.9% 250 ML 250 ML IVPB SCH (19:49)
[2021-07-11] MEDS: Lorazepam 2 MG/ML VIAL SLOW IVP PRN ×3 (00:17→21:08)
[2021-07-11] MEDS: Propofol 1,000 MG/100 ML VIAL IV PRN ×3 (03:23→17:49)
[2021-07-11] MEDS: Insulin Regular 300 UNITS/3 ML VIAL SC PRN ×4 (04:23→20:50)
[2021-07-11 04:41] LABS: Hemoglobin 10.9 g/dL (12.0-16.0); Mean Corpuscular HGB CONC 33.9 g/dL (32.0-36.0); Mean Corpuscular Hemoglobin 32.6 pg (27.0-31.0); Mean Corpuscular Volume 96.2 fL (78.0-98.0); Mean Platelet Volume 10.1 fL (7.4-10.4); Platelet Count 217 thou/uL (130-400); RBC Distribution Width 11.7 % (11.5-14.5); Red Blood Cell (RBC) Count 3.36 mill/uL (4.20-5.40); White Blood Cell (WBC) Count 12.1 thou/uL (4.8-10.8)
[2021-07-11 04:58] LABS: Anion Gap 7 mmol/L (10-20); BUN (Urea Nitrogen) 48 mg/dL (9.8-20.1); Calc. Creatinine Clearance 117 mL/min (70-130); Calcium 10.4 mg/dL (7.8-10.44); Carbon Dioxide 32 mmol/L (23-31); Chloride 110 mmol/L (98-107); Glucose 231 mg/dL (80-115); Potassium 4.5 mmol/L (3.5-5.1); Sodium 144 mmol/L (136-145)
[2021-07-11 05:32] LABS: Band 4 % (5-11); Lymphocytes 7 % (21-51); MDiff Complete? YES; Neutrophil 89 % (42-75)
[2021-07-11] MEDS: Zinc Sulfate 220 MG CAP PO SCH (09:13)
[2021-07-11] MEDS: Enoxaparin Sodium 40 MG/0.4 ML SYRINGE SC SCH ×2 (09:13→20:23)
[2021-07-11] MEDS: Ascorbic Acid 500 mg Chewable Tablet PO SCH (09:14)
[2021-07-11] MEDS: Cholecalciferol 1,000 UNITS (25 MCG) TAB PO SCH (09:14)
[2021-07-11] MEDS: Pantoprazole 40 MG GRANULES PACKET PER TUBE SCH (09:14)
[2021-07-11] MEDS: Polyethylene Glycol 3350 17 GM Packet PER TUBE SCH (09:14)
[2021-07-11] MEDS: NPH, Human Insulin Isophane 300 UNIT/3 ML VIAL SC SCH (09:15)
[2021-07-11] MEDS ORDERED: Fentanyl CADD 100 ML ONE ×2 (10:01→22:50)
[2021-07-11] MEDS: Fentanyl CADD 100 ML IV SCH ×2 (10:05→22:53)
[2021-07-11] MEDS: hydrALAZINE 20 MG/ML VIAL SLOW IVP PRN (11:25)
[2021-07-11] MEDS: methylPREDNISolone Sod Succ/PF 100 MG in Sodium Chloride 0.9% 250 ML 250 ML IVPB SCH (20:25)
[2021-07-12] MEDS: Morphine 2 MG/ML VIAL SLOW IVP PRN (00:07)
[2021-07-12] MEDS: Propofol 1,000 MG/100 ML VIAL IV PRN ×4 (02:13→22:47)
[2021-07-12] MEDS: Insulin Regular 300 UNITS/3 ML VIAL SC PRN ×4 (02:28→21:29)
[2021-07-12] MEDS: Lorazepam 2 MG/ML VIAL SLOW IVP PRN ×4 (04:03→23:17)
[2021-07-12 04:15] LABS: Anion Gap 8 mmol/L (10-20); BUN (Urea Nitrogen) 45 mg/dL (9.8-20.1); Calc. Creatinine Clearance 121 mL/min (70-130); Calcium 10.4 mg/dL (7.8-10.44); Carbon Dioxide 33 mmol/L (23-31); Chloride 109 mmol/L (98-107); Glucose 209 mg/dL (80-115); Potassium 4.7 mmol/L (3.5-5.1); Sodium 145 mmol/L (136-145)
[2021-07-12 04:20] LABS: Hemoglobin 10.5 g/dL (12.0-16.0); Mean Corpuscular HGB CONC 33.2 g/dL (32.0-36.0); Mean Corpuscular Hemoglobin 32.2 pg (27.0-31.0); Mean Corpuscular Volume 96.9 fL (78.0-98.0); Mean Platelet Volume 10.5 fL (7.4-10.4); Platelet Count 227 thou/uL (130-400); RBC Distribution Width 11.7 % (11.5-14.5); Red Blood Cell (RBC) Count 3.26 mill/uL (4.20-5.40); White Blood Cell (WBC) Count 12.8 thou/uL (4.8-10.8)
[2021-07-12 05:24] LABS: Band 14 % (5-11); Lymphocytes 6 % (21-51); MDiff Complete? YES; Monocytes 1 % (0-10); Neutrophil 79 % (42-75)
[2021-07-12] MEDS: Cholecalciferol 1,000 UNITS (25 MCG) TAB PO SCH (08:35)
[2021-07-12] MEDS: Pantoprazole 40 MG GRANULES PACKET PER TUBE SCH (08:35)
[2021-07-12] MEDS: Enoxaparin Sodium 40 MG/0.4 ML SYRINGE SC SCH ×3 (08:35→21:13)
[2021-07-12] MEDS: Zinc Sulfate 220 MG CAP PO SCH (08:35)
[2021-07-12] MEDS: Ascorbic Acid 500 mg Chewable Tablet PO SCH (08:35)
[2021-07-12] MEDS: NPH, Human Insulin Isophane 300 UNIT/3 ML VIAL SC SCH (09:30)
[2021-07-12] MEDS ORDERED: Fentanyl CADD 100 ML ONE (12:11)
[2021-07-12] MEDS: Fentanyl CADD 100 ML IV SCH (12:13)
[2021-07-12] MEDS: Polyethylene Glycol 3350 17 GM Packet PER TUBE SCH (15:54)
[2021-07-12] MEDS: methylPREDNISolone Sod Succ/PF 100 MG in Sodium Chloride 0.9% 250 ML 250 ML IVPB SCH (18:05)
[2021-07-12] MEDS ORDERED: NPH, Human Insulin Isophane 300 UNIT/3 ML VIAL SC SCH ×2 (21:00)
[2021-07-12] MEDS: hydrALAZINE 20 MG/ML VIAL SLOW IVP PRN (22:42)
[2021-07-13] MEDS: Fentanyl CADD 100 ML IV SCH ×2 (01:37→15:30)
[2021-07-13] MEDS: Insulin Regular 300 UNITS/3 ML VIAL SC PRN ×4 (02:00→21:41)
[2021-07-13 03:55] LABS: Anion Gap 6 mmol/L (10-20); BUN (Urea Nitrogen) 46 mg/dL (9.8-20.1); Calc. Creatinine Clearance 125 mL/min (70-130); Calcium 10.1 mg/dL (7.8-10.44); Carbon Dioxide 34 mmol/L (23-31); Chloride 108 mmol/L (98-107); Glucose 231 mg/dL (80-115); Potassium 4.8 mmol/L (3.5-5.1); Sodium 143 mmol/L (136-145)
[2021-07-13 04:51] LABS: Band 3 % (5-11); Hypochromia SLIGHT = 6-15 cells (100X) (0-5/hpf); Lymphocytes 4 % (21-51); MDiff Complete? YES; Mean Corpuscular HGB CONC 32.7 g/dL (32.0-36.0); Mean Corpuscular Hemoglobin 31.8 pg (27.0-31.0); Mean Platelet Volume 9.9 fL (7.4-10.4); Monocytes 15 % (0-10); Neutrophil 78 % (42-75); Platelet Count 234 thou/uL (130-400); Platelet Morphology Comment Appears Adequate; Red Blood Cell (RBC) Count 3.46 mill/uL (4.20-5.40); White Blood Cell (WBC) Count 15.1 thou/uL (4.8-10.8)
[2021-07-13] MEDS: Zinc Sulfate 220 MG CAP PO SCH (08:37)
[2021-07-13] MEDS: Ascorbic Acid 500 mg Chewable Tablet PO SCH (08:37)
[2021-07-13] MEDS: Cholecalciferol 1,000 UNITS (25 MCG) TAB PO SCH (08:37)
[2021-07-13] MEDS: Pantoprazole 40 MG GRANULES PACKET PER TUBE SCH (08:37)
[2021-07-13] MEDS: Polyethylene Glycol 3350 17 GM Packet PER TUBE SCH (08:39)
[2021-07-13] MEDS: NPH, Human Insulin Isophane 300 UNIT/3 ML VIAL SC SCH (08:39)
[2021-07-13] MEDS ORDERED: Enoxaparin Sodium 40 MG/0.4 ML SYRINGE SC SCH (08:45)
[2021-07-13] MEDS: Enoxaparin Sodium 40 MG/0.4 ML SYRINGE SC SCH ×2 (08:46→19:29)
[2021-07-13] MEDS: Propofol 1,000 MG/100 ML VIAL IV PRN ×3 (08:47→21:41)
[2021-07-13] MEDS: Lorazepam 2 MG/ML VIAL SLOW IVP PRN ×3 (10:11→23:23)
[2021-07-13 11:49] LABS: Actual Bicarbonate (HCO3a) 32.3 mEq/L (22-28); Base Excess (BEa) 6.9 mEq/L (-2.0 to +3.0); CO2 Tension 50.2 mmHg (35.0-45.0); Calcium, Ionized (arterial) 1.46 mmol/L (1.12-1.30); Carboxyhemoglobin (COHb) 0.3 gm% (0.0-3.0); Hemoglobin (Hb) 10.7 g/dL (12.0-16.0); O2 Tension (PaO2), arterial 83.9 mmHg (> 80.0); Potassium - ABG Lab 4.23 mmol/L (3.70-5.30); Puncture Site LRA; pH, Arterial 7.43 (7.35-7.45)
[2021-07-13] MEDS ORDERED: Fentanyl CADD 100 ML ONE (15:09)
[2021-07-13] MEDS: methylPREDNISolone Sod Succ/PF 100 MG in Sodium Chloride 0.9% 250 ML 250 ML IVPB SCH (19:12)
[2021-07-14] MEDS: Propofol 1,000 MG/100 ML VIAL IV PRN ×5 (03:10→22:39)
[2021-07-14] MEDS: Insulin Regular 300 UNITS/3 ML VIAL SC PRN ×4 (03:11→21:36)
[2021-07-14] MEDS ORDERED: Fentanyl CADD 100 ML ONE ×2 (04:15→16:56)
[2021-07-14] MEDS: Fentanyl CADD 100 ML IV SCH (04:22)
[2021-07-14 05:10] LABS: Band 10 % (5-11); Eosinophils 1 % (0-10); Hemoglobin 10.1 g/dL (12.0-16.0); Lymphocytes 2 % (21-51); MDiff Complete? YES; Mean Corpuscular HGB CONC 32.6 g/dL (32.0-36.0); Mean Corpuscular Hemoglobin 31.7 pg (27.0-31.0); Mean Corpuscular Volume 97.2 fL (78.0-98.0); Mean Platelet Volume 10.3 fL (7.4-10.4); Monocytes 3 % (0-10); Neutrophil 84 % (42-75); Platelet Count 179 thou/uL (130-400); Platelet Morphology Comment Appears Adequate; White Blood Cell (WBC) Count 9.1 thou/uL (4.8-10.8)
[2021-07-14 05:27] LABS: Anion Gap 8 mmol/L (10-20); BUN (Urea Nitrogen) 46 mg/dL (9.8-20.1); Calc. Creatinine Clearance 122 mL/min (70-130); Calcium 10.7 mg/dL (7.8-10.44); Carbon Dioxide 35 mmol/L (23-31); Chloride 106 mmol/L (98-107); Glucose 236 mg/dL (80-115); Potassium 4.6 mmol/L (3.5-5.1); Sodium 144 mmol/L (136-145)
[2021-07-14] MEDS: Enoxaparin Sodium 40 MG/0.4 ML SYRINGE SC SCH ×2 (09:33→20:02)
[2021-07-14] MEDS: Ascorbic Acid 500 mg Chewable Tablet PO SCH (09:34)
[2021-07-14] MEDS: Polyethylene Glycol 3350 17 GM Packet PER TUBE SCH (09:34)
[2021-07-14] MEDS: Cholecalciferol 1,000 UNITS (25 MCG) TAB PO SCH (09:34)
[2021-07-14] MEDS: Zinc Sulfate 220 MG CAP PO SCH (09:34)
[2021-07-14] MEDS: NPH, Human Insulin Isophane 300 UNIT/3 ML VIAL SC SCH (09:34)
[2021-07-14] MEDS: Pantoprazole 40 MG GRANULES PACKET PER TUBE SCH (09:34)
[2021-07-14] MEDS: Lorazepam 2 MG/ML VIAL SLOW IVP PRN ×2 (13:45→20:02)
[2021-07-14] MEDS: methylPREDNISolone Sod Succ/PF 100 MG in Sodium Chloride 0.9% 250 ML 250 ML IVPB SCH (18:09)
[2021-07-15] MEDS: Insulin Regular 300 UNITS/3 ML VIAL SC PRN ×4 (02:08→23:18)
[2021-07-15] MEDS: Lorazepam 2 MG/ML VIAL SLOW IVP PRN ×3 (04:07→21:35)
[2021-07-15 04:09] LABS: Anion Gap 8 mmol/L (10-20); BUN (Urea Nitrogen) 42 mg/dL (9.8-20.1); Calc. Creatinine Clearance 129 mL/min (70-130); Calcium 10.8 mg/dL (7.8-10.44); Carbon Dioxide 34 mmol/L (23-31); Chloride 104 mmol/L (98-107); Glucose 221 mg/dL (80-115); Potassium 4.5 mmol/L (3.5-5.1); Sodium 141 mmol/L (136-145)
[2021-07-15 04:12] LABS: Band 5 % (5-11); Hemoglobin 10.9 g/dL (12.0-16.0); Hypochromia SLIGHT = 6-15 cells (100X) (0-5/hpf); MDiff Complete? YES; Mean Corpuscular HGB CONC 33.1 g/dL (32.0-36.0); Mean Corpuscular Hemoglobin 31.8 pg (27.0-31.0); Mean Corpuscular Volume 96.1 fL (78.0-98.0); Mean Platelet Volume 10.2 fL (7.4-10.4); Monocytes 10 % (0-10); Neutrophil 85 % (42-75); Platelet Count 185 thou/uL (130-400); Platelet Morphology Comment Appears Adequate; RBC Distribution Width 11.9 % (11.5-14.5); Red Blood Cell (RBC) Count 3.41 mill/uL (4.20-5.40); White Blood Cell (WBC) Count 9.6 thou/uL (4.8-10.8)
[2021-07-15] MEDS ORDERED: Fentanyl CADD 100 ML ONE ×2 (06:20→19:36)
[2021-07-15] MEDS: Fentanyl CADD 100 ML IV SCH ×2 (06:23→19:44)
[2021-07-15] MEDS: Propofol 1,000 MG/100 ML VIAL IV PRN ×4 (08:28→23:03)
[2021-07-15] MEDS: Polyethylene Glycol 3350 17 GM Packet PER TUBE SCH (09:42)
[2021-07-15] MEDS: Cholecalciferol 1,000 UNITS (25 MCG) TAB PO SCH (09:43)
[2021-07-15] MEDS: Zinc Sulfate 220 MG CAP PO SCH (09:43)
[2021-07-15] MEDS: Enoxaparin Sodium 40 MG/0.4 ML SYRINGE SC SCH ×2 (09:43→20:33)
[2021-07-15] MEDS: Pantoprazole 40 MG GRANULES PACKET PER TUBE SCH (09:43)
[2021-07-15] MEDS: Ascorbic Acid 500 mg Chewable Tablet PO SCH (09:43)
[2021-07-15] MEDS: NPH, Human Insulin Isophane 300 UNIT/3 ML VIAL SC SCH (09:44)
[2021-07-15] MEDS: methylPREDNISolone Sod Succ/PF 100 MG in Sodium Chloride 0.9% 250 ML 250 ML IVPB SCH (16:38)
[2021-07-16] MEDS: Propofol 1,000 MG/100 ML VIAL IV PRN ×3 (03:33→19:59)
[2021-07-16] MEDS: hydrALAZINE 20 MG/ML VIAL SLOW IVP PRN (03:33)
[2021-07-16] MEDS: Lorazepam 2 MG/ML VIAL SLOW IVP PRN ×2 (04:16→19:59)
[2021-07-16 05:06] LABS: Anion Gap 10 mmol/L (10-20); BUN (Urea Nitrogen) 37 mg/dL (9.8-20.1); Calc. Creatinine Clearance 129 mL/min (70-130); Calcium 10.8 mg/dL (7.8-10.44); Carbon Dioxide 34 mmol/L (23-31); Chloride 102 mmol/L (98-107); Glucose 228 mg/dL (80-115); Potassium 4.6 mmol/L (3.5-5.1); Sodium 141 mmol/L (136-145)
[2021-07-16 05:07] LABS: ALT (SGPT) 70 U/L (8-55); AST (SGOT) 18 U/L (5-34); Albumin 2.5 g/dL (3.4-4.8); Alkaline Phosphatase 80 U/L (40-110); Bilirubin, Direct 0.3 mg/dL (0.1-0.3); Bilirubin, Total 0.5 mg/dL (0.2-1.2); CRP (Inflammatory) 1.93 mg/dL (= or < 0.5); Protein, Total 5.5 g/dL (5.8-8.1)
[2021-07-16 05:28] LABS: Band 3 % (5-11); Hemoglobin 11.7 g/dL (12.0-16.0); Lymphocytes 5 % (21-51); MDiff Complete? YES; Mean Corpuscular HGB CONC 33.7 g/dL (32.0-36.0); Mean Corpuscular Hemoglobin 32.4 pg (27.0-31.0); Mean Corpuscular Volume 96.1 fL (78.0-98.0); Mean Platelet Volume 10.5 fL (7.4-10.4); Metamyelocyte 1 % (0-0); Monocytes 3 % (0-10); Neutrophil 87 % (42-75); Platelet Count 185 thou/uL (130-400); Platelet Morphology Comment Appears Adequate; RBC Distribution Width 12.2 % (11.5-14.5); RBC Morphology Normal; Reactive Lymphocytes 1 % (0-10); Red Blood Cell (RBC) Count 3.62 mill/uL (4.20-5.40); White Blood Cell (WBC) Count 10.4 thou/uL (4.8-10.8)
[2021-07-16] MEDS ORDERED: Fentanyl CADD 100 ML ONE ×2 (05:56→18:27)
[2021-07-16] MEDS: Fentanyl CADD 100 ML IV SCH (06:01)
[2021-07-16] MEDS: Insulin Regular 300 UNITS/3 ML VIAL SC PRN ×4 (06:02→22:48)
[2021-07-16] MEDS: Polyethylene Glycol 3350 17 GM Packet PER TUBE SCH (09:24)
[2021-07-16] MEDS: Enoxaparin Sodium 40 MG/0.4 ML SYRINGE SC SCH ×2 (09:24→20:00)
[2021-07-16] MEDS: Zinc Sulfate 220 MG CAP PO SCH (09:24)
[2021-07-16] MEDS: Cholecalciferol 1,000 UNITS (25 MCG) TAB PO SCH (09:24)
[2021-07-16] MEDS: Ascorbic Acid 500 mg Chewable Tablet PO SCH (09:24)
[2021-07-16] MEDS: Pantoprazole 40 MG GRANULES PACKET PER TUBE SCH (09:24)
[2021-07-16] MEDS: NPH, Human Insulin Isophane 300 UNIT/3 ML VIAL SC SCH (09:25)
[2021-07-16] MEDS: methylPREDNISolone Sod Succ/PF 100 MG in Sodium Chloride 0.9% 250 ML 250 ML IVPB SCH (17:04)
[2021-07-17] MEDS: Propofol 1,000 MG/100 ML VIAL IV PRN ×4 (00:20→19:48)
[2021-07-17] MEDS ORDERED: Fentanyl CADD 100 ML ONE ×2 (05:10→16:00)
[2021-07-17 05:12] LABS: Band 4 % (5-11); Hemoglobin 10.8 g/dL (12.0-16.0); Hypochromia SLIGHT = 6-15 cells (100X) (0-5/hpf); Lymphocytes 9 % (21-51); MDiff Complete? YES; Mean Corpuscular HGB CONC 33.4 g/dL (32.0-36.0); Mean Corpuscular Volume 95.8 fL (78.0-98.0); Mean Platelet Volume 10.4 fL (7.4-10.4); Monocytes 6 % (0-10); Neutrophil 81 % (42-75); Platelet Count 164 thou/uL (130-400); Platelet Morphology Comment Appears Adequate; RBC Distribution Width 12.3 % (11.5-14.5); Red Blood Cell (RBC) Count 3.39 mill/uL (4.20-5.40); White Blood Cell (WBC) Count 9.3 thou/uL (4.8-10.8)
[2021-07-17] MEDS: Fentanyl CADD 100 ML IV SCH (05:15)
[2021-07-17 05:28] LABS: Anion Gap 9 mmol/L (10-20); BUN (Urea Nitrogen) 34 mg/dL (9.8-20.1); Calc. Creatinine Clearance 137 mL/min (70-130); Calcium 10.4 mg/dL (7.8-10.44); Carbon Dioxide 33 mmol/L (23-31); Chloride 102 mmol/L (98-107); Glucose 175 mg/dL (80-115); Potassium 4.4 mmol/L (3.5-5.1); Sodium 140 mmol/L (136-145)
[2021-07-17] MEDS: Insulin Regular 300 UNITS/3 ML VIAL SC PRN ×3 (06:31→22:55)
[2021-07-17] MEDS: Ascorbic Acid 500 mg Chewable Tablet PO SCH (09:08)
[2021-07-17] MEDS: Enoxaparin Sodium 40 MG/0.4 ML SYRINGE SC SCH ×2 (09:08→19:52)
[2021-07-17] MEDS: Zinc Sulfate 220 MG CAP PO SCH (09:08)
[2021-07-17] MEDS: Cholecalciferol 1,000 UNITS (25 MCG) TAB PO SCH (09:08)
[2021-07-17] MEDS: Polyethylene Glycol 3350 17 GM Packet PER TUBE SCH (09:09)
[2021-07-17] MEDS: Pantoprazole 40 MG GRANULES PACKET PER TUBE SCH (09:09)
[2021-07-17] MEDS: NPH, Human Insulin Isophane 300 UNIT/3 ML VIAL SC SCH (09:10)
[2021-07-17] MEDS: Lorazepam 2 MG/ML VIAL SLOW IVP PRN ×2 (16:21→23:26)
[2021-07-17] MEDS: methylPREDNISolone Sod Succ/PF 100 MG in Sodium Chloride 0.9% 250 ML 250 ML IVPB SCH (17:49)
[2021-07-17] MEDS ORDERED: Propofol 1,000 MG/100 ML VIAL IV ONE (23:58)
[2021-07-18] MEDS: Lorazepam 2 MG/ML VIAL SLOW IVP PRN ×3 (02:45→22:16)
[2021-07-18] MEDS ORDERED: Fentanyl CADD 100 ML ONE ×2 (03:24→14:52)
[2021-07-18] MEDS: Fentanyl CADD 100 ML IV SCH ×2 (03:35→15:02)
[2021-07-18 05:11] LABS: Anion Gap 8 mmol/L (10-20); BUN (Urea Nitrogen) 37 mg/dL (9.8-20.1); Calc. Creatinine Clearance 127 mL/min (70-130); Calcium 10.3 mg/dL (7.8-10.44); Carbon Dioxide 35 mmol/L (23-31); Chloride 102 mmol/L (98-107); Glucose 196 mg/dL (80-115); Potassium 4.5 mmol/L (3.5-5.1); Sodium 140 mmol/L (136-145)
[2021-07-18 05:22] LABS: Band 4 % (5-11); Hemoglobin 10.7 g/dL (12.0-16.0); Lymphocytes 10 % (21-51); MDiff Complete? YES; Mean Corpuscular HGB CONC 32.6 g/dL (32.0-36.0); Mean Corpuscular Hemoglobin 31.8 pg (27.0-31.0); Mean Corpuscular Volume 97.7 fL (78.0-98.0); Mean Platelet Volume 10.6 fL (7.4-10.4); Monocytes 3 % (0-10); Neutrophil 82 % (42-75); Platelet Count 145 thou/uL (130-400); Platelet Morphology Comment Appears Adequate; RBC Distribution Width 12.5 % (11.5-14.5); RBC Morphology Normal; Reactive Lymphocytes 1 % (0-10); Red Blood Cell (RBC) Count 3.36 mill/uL (4.20-5.40); White Blood Cell (WBC) Count 8.7 thou/uL (4.8-10.8)
[2021-07-18] MEDS: Insulin Regular 300 UNITS/3 ML VIAL SC PRN ×4 (05:51→21:26)
[2021-07-18] MEDS: Propofol 1,000 MG/100 ML VIAL IV PRN ×4 (07:25→21:15)
[2021-07-18] MEDS: Pantoprazole 40 MG GRANULES PACKET PER TUBE SCH (08:11)
[2021-07-18] MEDS: Cholecalciferol 1,000 UNITS (25 MCG) TAB PO SCH (08:12)
[2021-07-18] MEDS: Polyethylene Glycol 3350 17 GM Packet PER TUBE SCH (08:12)
[2021-07-18] MEDS: Ascorbic Acid 500 mg Chewable Tablet PO SCH (08:12)
[2021-07-18] MEDS: Zinc Sulfate 220 MG CAP PO SCH (08:12)
[2021-07-18] MEDS: Enoxaparin Sodium 40 MG/0.4 ML SYRINGE SC SCH ×2 (08:12→20:41)
[2021-07-18] MEDS: NPH, Human Insulin Isophane 300 UNIT/3 ML VIAL SC SCH (08:12)
[2021-07-18] MEDS: methylPREDNISolone Sod Succ/PF 100 MG in Sodium Chloride 0.9% 250 ML 250 ML IVPB SCH (18:19)
[2021-07-19] MEDS ORDERED: Fentanyl CADD 100 ML ONE ×3 (01:28→21:49)
[2021-07-19] MEDS: Fentanyl CADD 100 ML IV SCH ×2 (01:32→21:52)
[2021-07-19] MEDS: Lorazepam 2 MG/ML VIAL SLOW IVP PRN ×3 (02:23→19:46)
[2021-07-19] MEDS: Propofol 1,000 MG/100 ML VIAL IV PRN ×5 (02:24→19:44)
[2021-07-19] MEDS: Insulin Regular 300 UNITS/3 ML VIAL SC PRN ×2 (04:36→21:28)
[2021-07-19 04:51] LABS: Hemoglobin 10.1 g/dL (12.0-16.0); Hypochromia SLIGHT = 6-15 cells (100X) (0-5/hpf); Lymphocytes 5 % (21-51); MDiff Complete? YES; Mean Corpuscular HGB CONC 31.2 g/dL (32.0-36.0); Mean Corpuscular Hemoglobin 30.4 pg (27.0-31.0); Mean Corpuscular Volume 97.6 fL (78.0-98.0); Mean Platelet Volume 9.7 fL (7.4-10.4); Monocytes 6 % (0-10); Neutrophil 89 % (42-75); Platelet Count 141 thou/uL (130-400); Platelet Morphology Comment Appears Adequate; RBC Distribution Width 12.4 % (11.5-14.5); Red Blood Cell (RBC) Count 3.33 mill/uL (4.20-5.40); White Blood Cell (WBC) Count 10.8 thou/uL (4.8-10.8)
[2021-07-19 05:04] LABS: Anion Gap 6 mmol/L (10-20); BUN (Urea Nitrogen) 30 mg/dL (9.8-20.1); Calc. Creatinine Clearance 138 mL/min (70-130); Calcium 10.1 mg/dL (7.8-10.44); Carbon Dioxide 37 mmol/L (23-31); Chloride 101 mmol/L (98-107); Glucose 202 mg/dL (80-115); Potassium 4.6 mmol/L (3.5-5.1); Sodium 139 mmol/L (136-145)
[2021-07-19] MEDS: Ascorbic Acid 500 mg Chewable Tablet PO SCH (10:34)
[2021-07-19] MEDS: Zinc Sulfate 220 MG CAP PO SCH (10:34)
[2021-07-19] MEDS: Enoxaparin Sodium 40 MG/0.4 ML SYRINGE SC SCH ×2 (10:34→19:40)
[2021-07-19] MEDS: Pantoprazole 40 MG GRANULES PACKET PER TUBE SCH (10:34)
[2021-07-19] MEDS: Cholecalciferol 1,000 UNITS (25 MCG) TAB PO SCH (10:34)
[2021-07-19] MEDS: NPH, Human Insulin Isophane 300 UNIT/3 ML VIAL SC SCH (10:35)
[2021-07-19] MEDS: Polyethylene Glycol 3350 17 GM Packet PER TUBE SCH (10:35)
[2021-07-19] MEDS: Vecuronium 10 MG VIAL IVP PRN ×2 (14:12→18:17)
[2021-07-19] MEDS: methylPREDNISolone Sod Succ/PF 100 MG in Sodium Chloride 0.9% 250 ML 250 ML IVPB SCH (17:07)
[2021-07-19] MEDS: Morphine 2 MG/ML VIAL SLOW IVP PRN (19:41)
[2021-07-20] MEDS: Propofol 1,000 MG/100 ML VIAL IV PRN ×5 (00:11→17:37)
[2021-07-20 04:43] LABS: Anion Gap 5 mmol/L (10-20); BUN (Urea Nitrogen) 32 mg/dL (9.8-20.1); Calc. Creatinine Clearance 147 mL/min (70-130); Calcium 10.1 mg/dL (7.8-10.44); Carbon Dioxide 37 mmol/L (23-31); Chloride 100 mmol/L (98-107); Glucose 206 mg/dL (80-115); Potassium 4.5 mmol/L (3.5-5.1); Sodium 137 mmol/L (136-145)
[2021-07-20 04:45] LABS: Band 3 % (5-11); Hemoglobin 10.6 g/dL (12.0-16.0); MDiff Complete? YES; Mean Corpuscular HGB CONC 32.9 g/dL (32.0-36.0); Mean Corpuscular Hemoglobin 32.1 pg (27.0-31.0); Mean Corpuscular Volume 97.5 fL (78.0-98.0); Mean Platelet Volume 10.4 fL (7.4-10.4); Monocytes 3 % (0-10); Neutrophil 94 % (42-75); Platelet Count 128 thou/uL (130-400); RBC Distribution Width 12.6 % (11.5-14.5); White Blood Cell (WBC) Count 9.5 thou/uL (4.8-10.8)
[2021-07-20] MEDS: Insulin Regular 300 UNITS/3 ML VIAL SC PRN ×4 (04:47→21:38)
[2021-07-20] MEDS ORDERED: Fentanyl CADD 100 ML ONE ×2 (06:05→17:31)
[2021-07-20] MEDS: Fentanyl CADD 100 ML IV SCH ×2 (06:08→17:36)
[2021-07-20] MEDS: Lorazepam 2 MG/ML VIAL SLOW IVP PRN ×5 (06:09→23:05)
[2021-07-20] MEDS: Ascorbic Acid 500 mg Chewable Tablet PO SCH (08:37)
[2021-07-20] MEDS: Zinc Sulfate 220 MG CAP PO SCH (08:37)
[2021-07-20] MEDS: Enoxaparin Sodium 40 MG/0.4 ML SYRINGE SC SCH ×2 (08:37→19:14)
[2021-07-20] MEDS: Cholecalciferol 1,000 UNITS (25 MCG) TAB PO SCH (08:37)
[2021-07-20] MEDS: Pantoprazole 40 MG GRANULES PACKET PER TUBE SCH (08:37)
[2021-07-20] MEDS: NPH, Human Insulin Isophane 300 UNIT/3 ML VIAL SC SCH (09:34)
[2021-07-20] MEDS: Polyethylene Glycol 3350 17 GM Packet PER TUBE SCH (14:18)
[2021-07-20] MEDS: Morphine 2 MG/ML VIAL SLOW IVP PRN ×2 (19:15→23:00)
[2021-07-20] MEDS: methylPREDNISolone Sod Succ/PF 100 MG in Sodium Chloride 0.9% 250 ML 250 ML IVPB SCH (20:12)
[2021-07-20] MEDS ORDERED: PROPOFOL 0 ML ONE (21:09)
[2021-07-20] MEDS: Propofol 500 MG/50 ML VIAL IV PRN (21:26)
[2021-07-21] MEDS: Propofol 500 MG/50 ML VIAL IV PRN ×5 (00:26→11:34)
[2021-07-21] MEDS ORDERED: Fentanyl CADD 0 ML ONE (02:51)
[2021-07-21] MEDS ORDERED: Fentanyl CADD 100 ML ONE ×2 (04:13→15:27)
[2021-07-21] MEDS: Fentanyl CADD 100 ML IV SCH (04:15)
[2021-07-21 04:45] LABS: BUN (Urea Nitrogen) 31 mg/dL (9.8-20.1); Calc. Creatinine Clearance 137 mL/min (70-130); Glucose 210 mg/dL (80-115)
[2021-07-21] MEDS: Insulin Regular 300 UNITS/3 ML VIAL SC PRN ×3 (04:50→21:43)
[2021-07-21 04:55] LABS: Anion Gap 8 mmol/L (10-20); Carbon Dioxide 35 mmol/L (23-31); Chloride 102 mmol/L (98-107); Potassium 4.4 mmol/L (3.5-5.1); Sodium 141 mmol/L (136-145)
[2021-07-21 05:05] LABS: Hemoglobin 10.2 g/dL (12.0-16.0); Mean Corpuscular HGB CONC 31.4 g/dL (32.0-36.0); Mean Corpuscular Volume 98.6 fL (78.0-98.0); Mean Platelet Volume 10.1 fL (7.4-10.4); Platelet Count 110 thou/uL (130-400); RBC Distribution Width 12.7 % (11.5-14.5); Red Blood Cell (RBC) Count 3.28 mill/uL (4.20-5.40); White Blood Cell (WBC) Count 11.3 thou/uL (4.8-10.8)
[2021-07-21] MEDS: Morphine 2 MG/ML VIAL SLOW IVP PRN ×2 (05:07→11:17)
[2021-07-21] MEDS: Lorazepam 2 MG/ML VIAL SLOW IVP PRN ×3 (05:15→19:38)
[2021-07-21 05:59] LABS: Band 3 % (5-11); Hypochromia SLIGHT = 6-15 cells (100X) (0-5/hpf); Lymphocytes 6 % (21-51); MDiff Complete? YES; Macrocytosis SLIGHT = 6-15 cells (100X) (0-5/hpf); Monocytes 4 % (0-10); Neutrophil 87 % (42-75); Platelet Morphology Comment Appears Decreased
[2021-07-21] MEDS: Ascorbic Acid 500 mg Chewable Tablet PO SCH (08:52)
[2021-07-21] MEDS: Cholecalciferol 1,000 UNITS (25 MCG) TAB PO SCH (08:53)
[2021-07-21] MEDS: Enoxaparin Sodium 40 MG/0.4 ML SYRINGE SC SCH ×2 (08:53→19:37)
[2021-07-21] MEDS: Pantoprazole 40 MG GRANULES PACKET PER TUBE SCH (08:53)
[2021-07-21] MEDS: Zinc Sulfate 220 MG CAP PO SCH (08:53)
[2021-07-21] MEDS: NPH, Human Insulin Isophane 300 UNIT/3 ML VIAL SC SCH (08:54)
[2021-07-21] MEDS: Polyethylene Glycol 3350 17 GM Packet PER TUBE SCH (08:54)
[2021-07-21] MEDS: hydrALAZINE 20 MG/ML VIAL SLOW IVP PRN (10:21)
[2021-07-21] MEDS ORDERED: Vancomycin 1 GM in Premix Bag 1 BAG IVPB SCH (12:12)
[2021-07-21] MEDS ORDERED: Piperacillin/Tazobactam 3.375 GM in Sodium Chloride 0.9% 100 ML IVPB SCH ×2 (12:13→12:45)
[2021-07-21] MEDS ORDERED: Propofol 1,000 MG/100 ML VIAL IV ONE ×2 (12:51→17:17)
[2021-07-21] MEDS: VANCOMYCIN 1.25 GM/250 ML BAG 1.25 GM in Premix Bag 1 BAG IVPB SCH (14:24)
[2021-07-21] MEDS: Piperacillin/Tazobactam 3.375 GM in Sodium Chloride 0.9% 100 ML IVPB SCH (17:19)
[2021-07-21] MEDS: methylPREDNISolone Sod Succ/PF 100 MG in Sodium Chloride 0.9% 250 ML 250 ML IVPB SCH (19:07)
[2021-07-21] MEDS: Propofol 1,000 MG/100 ML VIAL IV PRN (22:26)
[2021-07-22] MEDS: Piperacillin/Tazobactam 3.375 GM in Sodium Chloride 0.9% 100 ML IVPB SCH ×3 (01:25→16:30)
[2021-07-22] MEDS ORDERED: Fentanyl CADD 100 ML ONE ×2 (01:30→12:08)
[2021-07-22] MEDS: Fentanyl CADD 100 ML IV SCH ×2 (01:37→12:27)
[2021-07-22] MEDS: VANCOMYCIN 1.25 GM/250 ML BAG 1.25 GM in Premix Bag 1 BAG IVPB SCH ×2 (01:55→14:48)
[2021-07-22] MEDS: Morphine 2 MG/ML VIAL SLOW IVP PRN ×2 (02:00→07:52)
[2021-07-22] MEDS: Lorazepam 2 MG/ML VIAL SLOW IVP PRN ×2 (02:07→07:50)
[2021-07-22] MEDS: Propofol 1,000 MG/100 ML VIAL IV PRN ×3 (03:34→17:22)
[2021-07-22] MEDS: Insulin Regular 300 UNITS/3 ML VIAL SC PRN ×3 (03:52→21:28)
[2021-07-22 04:31] LABS: Phosphorus 2.6 mg/dL (2.3-4.7)
[2021-07-22 04:38] LABS: ALT (SGPT) 37 U/L (8-55); AST (SGOT) 12 U/L (5-34); Albumin 2.2 g/dL (3.4-4.8); Alkaline Phosphatase 70 U/L (40-110); BUN (Urea Nitrogen) 30 mg/dL (9.8-20.1); Bilirubin, Total 0.5 mg/dL (0.2-1.2); Calc. Creatinine Clearance 139 mL/min (70-130); Calcium 9.9 mg/dL (7.8-10.44); Glucose 194 mg/dL (80-115); Magnesium 2.1 mg/dL (1.6-2.6); Protein, Total 4.2 g/dL (5.8-8.1)
[2021-07-22 04:47] LABS: Anion Gap 12 mmol/L (10-20); Carbon Dioxide 31 mmol/L (23-31); Chloride 101 mmol/L (98-107); Potassium 4.3 mmol/L (3.5-5.1); Sodium 140 mmol/L (136-145)
[2021-07-22 05:11] LABS: Hemoglobin 10.6 g/dL (12.0-16.0); Mean Corpuscular HGB CONC 32.9 g/dL (32.0-36.0); Mean Corpuscular Hemoglobin 32.2 pg (27.0-31.0); Mean Corpuscular Volume 97.8 fL (78.0-98.0); RBC Distribution Width 13.1 % (11.5-14.5); Red Blood Cell (RBC) Count 3.28 mill/uL (4.20-5.40); White Blood Cell (WBC) Count 12.4 thou/uL (4.8-10.8)
[2021-07-22 05:12] LABS: Band 4 % (5-11); Lymphocytes 2 % (21-51); MDiff Complete? YES; Mean Platelet Volume 9.7 fL (7.4-10.4); Monocytes 4 % (0-10); Myelocyte 1 % (0-0); Neutrophil 89 % (42-75); Platelet Count 104 thou/uL (130-400); Platelet Morphology Comment Appears Decreased
[2021-07-22] MEDS: hydrALAZINE 20 MG/ML VIAL SLOW IVP PRN (07:53)
[2021-07-22] MEDS: Cholecalciferol 1,000 UNITS (25 MCG) TAB PO SCH (07:54)
[2021-07-22] MEDS: Zinc Sulfate 220 MG CAP PO SCH (07:54)
[2021-07-22] MEDS: Polyethylene Glycol 3350 17 GM Packet PER TUBE SCH (08:20)
[2021-07-22] MEDS: Pantoprazole 40 MG GRANULES PACKET PER TUBE SCH (08:20)
[2021-07-22] MEDS: Enoxaparin Sodium 40 MG/0.4 ML SYRINGE SC SCH ×2 (08:21→21:23)
[2021-07-22] MEDS: NPH, Human Insulin Isophane 300 UNIT/3 ML VIAL SC SCH (08:21)
[2021-07-22 09:08] LABS: Actual Bicarbonate (HCO3a) 34.7 mEq/L (22-28); CO2 Tension 46.4 mmHg (35.0-45.0); Calcium, Ionized (arterial) 1.41 mmol/L (1.12-1.30); Carboxyhemoglobin (COHb) 0.9 gm% (0.0-3.0); Hemoglobin (Hb) 14.7 g/dL (12.0-16.0); O2 Tension (PaO2), arterial 60.3 mmHg (> 80.0); Potassium - ABG Lab 3.95 mmol/L (3.70-5.30); pH, Arterial 7.49 (7.35-7.45)
[2021-07-22 09:27] LABS: Puncture Site LRA
[2021-07-22] MEDS ORDERED: Amlodipine 10 MG TAB PO SCH (09:30)
[2021-07-22] MEDS: Dexmedetomidine 1,000 MCG in Sodium Chloride 0.9% 250 ML 240 ML IVPB SCH (17:23)
[2021-07-22] MEDS: methylPREDNISolone Sod Succ/PF 100 MG in Sodium Chloride 0.9% 250 ML 250 ML IVPB SCH (20:33)
[2021-07-23] MEDS: Propofol 1,000 MG/100 ML VIAL IV PRN ×4 (00:25→18:36)
[2021-07-23] MEDS: Piperacillin/Tazobactam 3.375 GM in Sodium Chloride 0.9% 100 ML IVPB SCH ×3 (00:25→16:49)
[2021-07-23] MEDS: hydrALAZINE 20 MG/ML VIAL SLOW IVP PRN ×2 (01:13→19:21)
[2021-07-23 01:28] LABS: Vancomycin, Trough 13.7 ug/mL
[2021-07-23] MEDS ORDERED: Fentanyl CADD 0 ML ONE (01:31)
[2021-07-23] MEDS: Fentanyl CADD 100 ML IV SCH ×2 (01:49→15:12)
[2021-07-23] MEDS ORDERED: Vancomycin HCl 1.25 GM in Sodium Chloride 0.9% 250 ML 250 ML IVPB SCH (02:00)
[2021-07-23] MEDS: Vancomycin 1.5 GRAM/300 ML BAG 1.5 GM in Premix Bag 1 BAG IVPB SCH ×2 (03:00→14:34)
[2021-07-23 04:25] LABS: Hemoglobin 11.9 g/dL (12.0-16.0); Mean Corpuscular HGB CONC 32.8 g/dL (32.0-36.0); Mean Corpuscular Hemoglobin 32.1 pg (27.0-31.0); Mean Corpuscular Volume 97.9 fL (78.0-98.0); Mean Platelet Volume 9.1 fL (7.4-10.4); Platelet Count 111 thou/uL (130-400); RBC Distribution Width 13.4 % (11.5-14.5); White Blood Cell (WBC) Count 15.4 thou/uL (4.8-10.8)
[2021-07-23 04:45] LABS: Phosphorus 2.4 mg/dL (2.3-4.7)
[2021-07-23 04:47] LABS: ALT (SGPT) 44 U/L (8-55); AST (SGOT) 15 U/L (5-34); Albumin 2.5 g/dL (3.4-4.8); Alkaline Phosphatase 79 U/L (40-110); Anion Gap 8 mmol/L (10-20); BUN (Urea Nitrogen) 27 mg/dL (9.8-20.1); Bilirubin, Total 0.7 mg/dL (0.2-1.2); Calc. Creatinine Clearance 142 mL/min (70-130); Calcium 10.4 mg/dL (7.8-10.44); Carbon Dioxide 35 mmol/L (23-31); Chloride 104 mmol/L (98-107); Globulin 2.4 g/dL (2.4-3.5); Glucose 176 mg/dL (80-115); Magnesium 2.1 mg/dL (1.6-2.6); Potassium 4.1 mmol/L (3.5-5.1); Protein, Total 4.9 g/dL (5.8-8.1); Sodium 143 mmol/L (136-145)
[2021-07-23 05:08] LABS: Thyroid Stimulating Hormone 1.188 uIU/mL (0.35-4.94)
[2021-07-23 05:24] LABS: Lymphocytes 5 % (21-51); MDiff Complete? YES; Monocytes 3 % (0-10); Neutrophil 92 % (42-75); Platelet Morphology Comment Appears Decreased
[2021-07-23] MEDS: Pantoprazole 40 MG GRANULES PACKET PER TUBE SCH (09:18)
[2021-07-23] MEDS: Cholecalciferol 1,000 UNITS (25 MCG) TAB PO SCH (09:18)
[2021-07-23] MEDS: Zinc Sulfate 220 MG CAP PO SCH (09:18)
[2021-07-23] MEDS: Enoxaparin Sodium 40 MG/0.4 ML SYRINGE SC SCH ×2 (09:18→21:14)
[2021-07-23] MEDS: Amlodipine 10 MG TAB PO SCH (09:18)
[2021-07-23] MEDS: Polyethylene Glycol 3350 17 GM Packet PER TUBE SCH (09:22)
[2021-07-23] MEDS: NPH, Human Insulin Isophane 300 UNIT/3 ML VIAL SC SCH (09:27)
[2021-07-23] MEDS: Insulin Regular 300 UNITS/3 ML VIAL SC PRN ×2 (09:29→17:14)
[2021-07-23] MEDS ORDERED: Fentanyl CADD 100 ML ONE (14:53)
[2021-07-23] MEDS: Dexmedetomidine 1,000 MCG in Sodium Chloride 0.9% 250 ML 240 ML IVPB SCH (16:14)
[2021-07-23] MEDS ORDERED: Metoclopramide HCl 10 MG/2 ML VIAL IVP SCH ×2 (17:15)
[2021-07-23] MEDS: methylPREDNISolone Sod Succ/PF 100 MG in Sodium Chloride 0.9% 250 ML 250 ML IVPB SCH (20:13)
[2021-07-23] MEDS: Lorazepam 2 MG/ML VIAL SLOW IVP PRN (22:23)
[2021-07-24] MEDS: Vancomycin 1.5 GRAM/300 ML BAG 1.5 GM in Premix Bag 1 BAG IVPB SCH ×2 (01:18→15:44)
[2021-07-24] MEDS: Piperacillin/Tazobactam 3.375 GM in Sodium Chloride 0.9% 100 ML IVPB SCH ×3 (01:18→17:07)
[2021-07-24] MEDS: Propofol 1,000 MG/100 ML VIAL IV PRN ×5 (02:28→22:22)
[2021-07-24] MEDS ORDERED: Fentanyl CADD 100 ML ONE ×2 (04:38→17:51)
[2021-07-24 04:39] LABS: Anion Gap 7 mmol/L (10-20); BUN (Urea Nitrogen) 28 mg/dL (9.8-20.1); Calc. Creatinine Clearance 161 mL/min (70-130); Calcium 10.1 mg/dL (7.8-10.44); Carbon Dioxide 34 mmol/L (23-31); Chloride 104 mmol/L (98-107); Glucose 171 mg/dL (80-115); Potassium 3.9 mmol/L (3.5-5.1); Sodium 141 mmol/L (136-145)
[2021-07-24] MEDS: Fentanyl CADD 100 ML IV SCH ×2 (04:40→17:56)
[2021-07-24 05:12] LABS: Band 6 % (5-11); Hemoglobin 11.1 g/dL (12.0-16.0); Lymphocytes 12 % (21-51); MDiff Complete? YES; Mean Corpuscular HGB CONC 33.2 g/dL (32.0-36.0); Mean Corpuscular Hemoglobin 32.6 pg (27.0-31.0); Mean Platelet Volume 9.4 fL (7.4-10.4); Neutrophil 82 % (42-75); Platelet Count 90 thou/uL (130-400); Platelet Morphology Comment Appears Decreased; RBC Distribution Width 13.4 % (11.5-14.5); RBC Morphology Normal; Red Blood Cell (RBC) Count 3.42 mill/uL (4.20-5.40); White Blood Cell (WBC) Count 9.2 thou/uL (4.8-10.8)
[2021-07-24] MEDS: Insulin Regular 300 UNITS/3 ML VIAL SC PRN (06:36)
[2021-07-24] MEDS: Dexmedetomidine 1,000 MCG in Sodium Chloride 0.9% 250 ML 240 ML IVPB SCH ×2 (06:46→07:49)
[2021-07-24] MEDS: Polyethylene Glycol 3350 17 GM Packet PER TUBE SCH (09:06)
[2021-07-24] MEDS: Enoxaparin Sodium 40 MG/0.4 ML SYRINGE SC SCH (09:06)
[2021-07-24] MEDS: Pantoprazole 40 MG GRANULES PACKET PER TUBE SCH (09:06)
[2021-07-24] MEDS: Cholecalciferol 1,000 UNITS (25 MCG) TAB PO SCH (09:06)
[2021-07-24] MEDS: Amlodipine 10 MG TAB PO SCH (09:06)
[2021-07-24] MEDS: Zinc Sulfate 220 MG CAP PO SCH (09:06)
[2021-07-24] MEDS: methylPREDNISolone Sod Succ 40 MG VIAL IVP SCH (09:07)
[2021-07-24] MEDS: NPH, Human Insulin Isophane 300 UNIT/3 ML VIAL SC SCH (10:17)
[2021-07-24 13:50] LABS: Vancomycin, Trough 21.4 ug/mL
[2021-07-24] MEDS: VANCOMYCIN 1.25 GM/250 ML BAG 1.25 GM in Premix Bag 1 BAG IVPB SCH (15:43)
[2021-07-25] MEDS: Dexmedetomidine 1,000 MCG in Sodium Chloride 0.9% 250 ML 240 ML IVPB SCH (00:27)
[2021-07-25] MEDS: Piperacillin/Tazobactam 3.375 GM in Sodium Chloride 0.9% 100 ML IVPB SCH ×3 (01:25→18:03)
[2021-07-25] MEDS: hydrALAZINE 20 MG/ML VIAL SLOW IVP PRN ×3 (01:34→18:06)
[2021-07-25] MEDS: Propofol 1,000 MG/100 ML VIAL IV PRN ×3 (02:03→22:30)
[2021-07-25] MEDS: VANCOMYCIN 1.25 GM/250 ML BAG 1.25 GM in Premix Bag 1 BAG IVPB SCH ×2 (02:43→15:27)
[2021-07-25 04:39] LABS: Anion Gap 10 mmol/L (10-20); BUN (Urea Nitrogen) 25 mg/dL (9.8-20.1); Calc. Creatinine Clearance 150 mL/min (70-130); Calcium 9.9 mg/dL (7.8-10.44); Carbon Dioxide 32 mmol/L (23-31); Chloride 105 mmol/L (98-107); Glucose 95 mg/dL (80-115); Potassium 3.5 mmol/L (3.5-5.1); Sodium 143 mmol/L (136-145)
[2021-07-25] MEDS ORDERED: Fentanyl CADD 100 ML ONE ×2 (05:11→20:42)
[2021-07-25] MEDS: Fentanyl CADD 100 ML IV SCH ×2 (05:15→20:48)
[2021-07-25 05:45] LABS: Band 3 % (5-11); Hemoglobin 12.3 g/dL (12.0-16.0); Lymphocytes 13 % (21-51); MDiff Complete? YES; Mean Corpuscular HGB CONC 32.2 g/dL (32.0-36.0); Mean Corpuscular Hemoglobin 31.2 pg (27.0-31.0); Mean Platelet Volume 8.9 fL (7.4-10.4); Metamyelocyte 1 % (0-0); Monocytes 2 % (0-10); Neutrophil 81 % (42-75); Platelet Count 105 thou/uL (130-400); Platelet Morphology Comment Appears Decreased; RBC Distribution Width 13.5 % (11.5-14.5); Red Blood Cell (RBC) Count 3.93 mill/uL (4.20-5.40); White Blood Cell (WBC) Count 10.3 thou/uL (4.8-10.8)
[2021-07-25] MEDS ORDERED: Potassium Chloride 20 MEQ TAB PO SCH (06:30)
[2021-07-25] MEDS ORDERED: Potassium Chloride 40 MEQ in Sodium Chloride 0.9% 250 ML 250 ML IVPB SCH (08:00)
[2021-07-25] MEDS: Zinc Sulfate 220 MG CAP PO SCH ×3 (09:35→09:36)
[2021-07-25] MEDS: Polyethylene Glycol 3350 17 GM Packet PER TUBE SCH ×2 (09:36)
[2021-07-25] MEDS: Cholecalciferol 1,000 UNITS (25 MCG) TAB PO SCH (09:36)
[2021-07-25] MEDS: Amlodipine 10 MG TAB PO SCH (09:36)
[2021-07-25] MEDS: Pantoprazole 40 MG GRANULES PACKET PER TUBE SCH (09:36)
[2021-07-25] MEDS: NPH, Human Insulin Isophane 300 UNIT/3 ML VIAL SC SCH (09:37)
[2021-07-25] MEDS: methylPREDNISolone Sod Succ 40 MG VIAL IVP SCH (09:37)
[2021-07-25] MEDS ORDERED: Lidocaine 1% w/Epinephrine 1:100K 30 ML VIAL ONE (11:04)
[2021-07-25] MEDS ORDERED: Bupivacaine 0.25% HCL 30 ML VIAL ONE (11:04)
[2021-07-25] MEDS ORDERED: Lidocaine 2% PF 5 ML VIAL ONE (11:04)
[2021-07-25] MEDS ORDERED: Fentanyl 100 MCG/2 ML VIAL ONE (11:23)
[2021-07-25] MEDS ORDERED: Midazolam HCl 2 mg/2 ml Vial ONE (11:23)
[2021-07-25] MEDS ORDERED: ePHEDrine 50 MG/ML VIAL ONE (11:39)
[2021-07-25] MEDS ORDERED: Rocuronium Bromide 10 MG/ML (10ML VIAL) ONE (11:39)
[2021-07-25] MEDS: Insulin Regular 300 UNITS/3 ML VIAL SC PRN (18:04)
[2021-07-26] MEDS: Piperacillin/Tazobactam 3.375 GM in Sodium Chloride 0.9% 100 ML IVPB SCH ×3 (02:00→17:35)
[2021-07-26] MEDS: Dexmedetomidine 1,000 MCG in Sodium Chloride 0.9% 250 ML 240 ML IVPB SCH (04:37)
[2021-07-26] MEDS: VANCOMYCIN 1.25 GM/250 ML BAG 1.25 GM in Premix Bag 1 BAG IVPB SCH ×2 (04:55→16:00)
[2021-07-26] MEDS: Propofol 1,000 MG/100 ML VIAL IV PRN (05:53)
[2021-07-26 07:28] LABS: Hemoglobin 11.2 g/dL (12.0-16.0); Mean Corpuscular HGB CONC 32.5 g/dL (32.0-36.0); Mean Corpuscular Hemoglobin 31.3 pg (27.0-31.0); Mean Corpuscular Volume 96.4 fL (78.0-98.0); Mean Platelet Volume 8.5 fL (7.4-10.4); Platelet Count 90 thou/uL (130-400); RBC Distribution Width 13.7 % (11.5-14.5); Red Blood Cell (RBC) Count 3.59 mill/uL (4.20-5.40); White Blood Cell (WBC) Count 8.9 thou/uL (4.8-10.8)
[2021-07-26 07:32] LABS: Anion Gap 10 mmol/L (10-20); BUN (Urea Nitrogen) 16 mg/dL (9.8-20.1); Calc. Creatinine Clearance 179 mL/min (70-130); Calcium 9.1 mg/dL (7.8-10.44); Carbon Dioxide 28 mmol/L (23-31); Chloride 106 mmol/L (98-107); Glucose 100 mg/dL (80-115); Potassium 3.5 mmol/L (3.5-5.1); Sodium 140 mmol/L (136-145)
[2021-07-26 07:58] LABS: Band 13 % (5-11); Eosinophils 1 % (0-10); Lymphocytes 7 % (21-51); MDiff Complete? YES; Monocytes 1 % (0-10); Neutrophil 78 % (42-75)
[2021-07-26] MEDS: Amlodipine 10 MG TAB PO SCH (08:39)
[2021-07-26] MEDS: Pantoprazole 40 MG GRANULES PACKET PER TUBE SCH (08:40)
[2021-07-26] MEDS: Cholecalciferol 1,000 UNITS (25 MCG) TAB PO SCH (08:40)
[2021-07-26] MEDS: Zinc Sulfate 220 MG CAP PO SCH (08:40)
[2021-07-26] MEDS: methylPREDNISolone Sod Succ 40 MG VIAL IVP SCH (08:40)
[2021-07-26] MEDS: Polyethylene Glycol 3350 17 GM Packet PER TUBE SCH (08:42)
[2021-07-26] MEDS: NPH, Human Insulin Isophane 300 UNIT/3 ML VIAL SC SCH (08:49)
[2021-07-26] MEDS ORDERED: Potassium Chloride 40 MEQ in Sodium Chloride 0.9% 250 ML 250 ML IVPB SCH (09:00)
[2021-07-26] MEDS: Lorazepam 2 MG/ML VIAL SLOW IVP PRN (09:45)
[2021-07-26] MEDS ORDERED: hydrALAZINE 20 MG/ML VIAL ONE (09:47)
[2021-07-26] MEDS: hydrALAZINE 20 MG/ML VIAL SLOW IVP PRN (09:48)
[2021-07-26 14:19] LABS: Vancomycin, Trough 22.5 ug/mL
[2021-07-26] MEDS ORDERED: VANCOMYCIN 1.25 GM/250 ML BAG 1.25 GM in Premix Bag 1 BAG IVPB SCH (16:15)
[2021-07-27] MEDS: Piperacillin/Tazobactam 3.375 GM in Sodium Chloride 0.9% 100 ML IVPB SCH ×3 (04:13→17:00)
[2021-07-27 08:09] LABS: Anion Gap 10 mmol/L (10-20); BUN (Urea Nitrogen) 21 mg/dL (9.8-20.1); Calc. Creatinine Clearance 180 mL/min (70-130); Calcium 9.2 mg/dL (7.8-10.44); Carbon Dioxide 29 mmol/L (23-31); Chloride 106 mmol/L (98-107); Glucose 92 mg/dL (80-115); Potassium 3.2 mmol/L (3.5-5.1); Sodium 142 mmol/L (136-145)
[2021-07-27] MEDS: Fentanyl CADD 100 ML IV SCH (08:28)
[2021-07-27] MEDS ORDERED: Potassium Chloride 40 MEQ in Sodium Chloride 0.9% 250 ML 250 ML IVPB SCH (08:45)
[2021-07-27] MEDS: Zinc Sulfate 220 MG CAP PO SCH (09:00)
[2021-07-27] MEDS: Enoxaparin Sodium 40 MG/0.4 ML SYRINGE SC SCH ×2 (09:00→22:35)
[2021-07-27] MEDS: Amlodipine 10 MG TAB PO SCH (09:00)
[2021-07-27] MEDS: Pantoprazole 40 MG GRANULES PACKET PER TUBE SCH (09:00)
[2021-07-27 09:01] LABS: Eosinophils 3 % (0-10); Hemoglobin 9.8 g/dL (12.0-16.0); Lymphocytes 8 % (21-51); MDiff Complete? YES; Mean Corpuscular HGB CONC 32.2 g/dL (32.0-36.0); Mean Corpuscular Hemoglobin 31.4 pg (27.0-31.0); Mean Corpuscular Volume 97.6 fL (78.0-98.0); Mean Platelet Volume 8.8 fL (7.4-10.4); Monocytes 4 % (0-10); Neutrophil 85 % (42-75); Platelet Count 95 thou/uL (130-400); Platelet Morphology Comment Appears Decreased; RBC Distribution Width 13.5 % (11.5-14.5); RBC Morphology Normal; White Blood Cell (WBC) Count 7.4 thou/uL (4.8-10.8)
[2021-07-27] MEDS: Polyethylene Glycol 3350 17 GM Packet PER TUBE SCH (09:01)
[2021-07-27] MEDS: methylPREDNISolone Sod Succ 40 MG VIAL IVP SCH (09:01)
[2021-07-27] MEDS: NPH, Human Insulin Isophane 300 UNIT/3 ML VIAL SC SCH (09:07)
[2021-07-27] MEDS: Cholecalciferol 1,000 UNITS (25 MCG) TAB PO SCH (09:16)
[2021-07-27] MEDS ORDERED: methylPREDNISolone Sod Succ 40 MG VIAL IVP SCH (10:00)
[2021-07-28] MEDS: Cholecalciferol 1,000 UNITS (25 MCG) TAB PO SCH (09:00)
[2021-07-28] MEDS: NPH, Human Insulin Isophane 300 UNIT/3 ML VIAL SC SCH (09:02)
[2021-07-28] MEDS: Piperacillin/Tazobactam 3.375 GM in Sodium Chloride 0.9% 100 ML IVPB SCH (09:10)
[2021-07-28] MEDS: Pantoprazole 40 MG GRANULES PACKET PER TUBE SCH (09:11)
[2021-07-28] MEDS: Enoxaparin Sodium 40 MG/0.4 ML SYRINGE SC SCH ×2 (09:11→21:30)
[2021-07-28] MEDS: Polyethylene Glycol 3350 17 GM Packet PER TUBE SCH (09:11)
[2021-07-28] MEDS: Amlodipine 10 MG TAB PO SCH (09:11)
[2021-07-28] MEDS: Zinc Sulfate 220 MG CAP PO SCH (09:11)
[2021-07-28] MEDS: methylPREDNISolone Sod Succ 40 MG VIAL IVP SCH (09:12)
[2021-07-28 15:49] LABS: #Lymphocytes 0.3 thou/uL (1.20-3.40); #Monocytes 0.1 thou/uL (0.11-0.59); #Neutrophils 6.7 thou/uL (1.40-6.50); %Basophils 0.1 % (0.0-1.0); %Eosinophils 0.1 % (0.0-10.0); %Lymphocytes 4.1 % (21.0-51.0); %Monocytes 1.4 % (0.0-10.0); %Neutrophils 94.4 % (42.0-75.0); Hemoglobin 11.4 g/dL (12.0-16.0); Mean Corpuscular Hemoglobin 32.1 pg (27.0-31.0); Mean Corpuscular Volume 97.2 fL (78.0-98.0); Mean Platelet Volume 8.3 fL (7.4-10.4); Platelet Count 133 thou/uL (130-400); RBC Distribution Width 13.5 % (11.5-14.5); Red Blood Cell (RBC) Count 3.56 mill/uL (4.20-5.40); White Blood Cell (WBC) Count 7.1 thou/uL (4.8-10.8)
[2021-07-28 16:08] LABS: Vancomycin, Trough 4.8 ug/mL
[2021-07-28 16:28] LABS: Anion Gap 13 mmol/L (10-20); BUN (Urea Nitrogen) 21 mg/dL (9.8-20.1); Calc. Creatinine Clearance 167 mL/min (70-130); Calcium 9.6 mg/dL (7.8-10.44); Carbon Dioxide 28 mmol/L (23-31); Chloride 106 mmol/L (98-107); Glucose 211 mg/dL (80-115); Potassium 3.9 mmol/L (3.5-5.1); Sodium 143 mmol/L (136-145)
[2021-07-28] MEDS: Insulin Regular 300 UNITS/3 ML VIAL SC PRN (17:01)
[2021-07-28 20:21] LABS: Vancomycin, Trough 4.2 ug/mL
[2021-07-28] MEDS ORDERED: Fentanyl CADD 100 ML ONE (22:48)
[2021-07-28] MEDS: Fentanyl CADD 100 ML IV SCH (23:08)
[2021-07-29] MEDS: Piperacillin/Tazobactam 3.375 GM in Sodium Chloride 0.9% 100 ML IVPB SCH (02:22)
[2021-07-29 04:39] LABS: #Lymphocytes 0.8 thou/uL (1.20-3.40); #Monocytes 0.5 thou/uL (0.11-0.59); #Neutrophils 5.6 thou/uL (1.40-6.50); %Basophils 0.1 % (0.0-1.0); %Eosinophils 0.4 % (0.0-10.0); %Lymphocytes 11.5 % (21.0-51.0); %Monocytes 7.2 % (0.0-10.0); %Neutrophils 80.9 % (42.0-75.0); Hemoglobin 10.2 g/dL (12.0-16.0); Mean Corpuscular HGB CONC 32.8 g/dL (32.0-36.0); Mean Corpuscular Hemoglobin 31.9 pg (27.0-31.0); Mean Corpuscular Volume 97.1 fL (78.0-98.0); Mean Platelet Volume 8.4 fL (7.4-10.4); Platelet Count 147 thou/uL (130-400); RBC Distribution Width 13.3 % (11.5-14.5)
[2021-07-29 04:59] LABS: Anion Gap 9 mmol/L (10-20); BUN (Urea Nitrogen) 22 mg/dL (9.8-20.1); Calc. Creatinine Clearance 167 mL/min (70-130); Calcium 9.6 mg/dL (7.8-10.44); Carbon Dioxide 31 mmol/L (23-31); Chloride 106 mmol/L (98-107); Glucose 207 mg/dL (80-115); Potassium 3.6 mmol/L (3.5-5.1); Sodium 142 mmol/L (136-145)
[2021-07-29 05:39] LABS: Hemoglobin 10.2 g/dL (12.0-16.0); Lymphocytes 10 % (21-51); MDiff Complete? YES; Mean Corpuscular Volume 97.1 fL (78.0-98.0); Mean Platelet Volume 8.5 fL (7.4-10.4); Monocytes 6 % (0-10); Myelocyte 1 % (0-0); Neutrophil 82 % (42-75); Platelet Count 144 thou/uL (130-400); Platelet Morphology Comment Appears Adequate; RBC Distribution Width 13.3 % (11.5-14.5); RBC Morphology Normal; Reactive Lymphocytes 1 % (0-10); White Blood Cell (WBC) Count 7.1 thou/uL (4.8-10.8)
[2021-07-29] MEDS: Insulin Regular 300 UNITS/3 ML VIAL SC PRN ×2 (06:42→17:19)
[2021-07-29] MEDS: Polyethylene Glycol 3350 17 GM Packet PER TUBE SCH (09:00)
[2021-07-29] MEDS: methylPREDNISolone Sod Succ 40 MG VIAL IVP SCH (09:19)
[2021-07-29] MEDS: Amlodipine 10 MG TAB PO SCH (09:19)
[2021-07-29] MEDS: Enoxaparin Sodium 40 MG/0.4 ML SYRINGE SC SCH ×2 (09:22→22:00)
[2021-07-29] MEDS: Cholecalciferol 1,000 UNITS (25 MCG) TAB PO SCH (09:23)
[2021-07-29] MEDS: Zinc Sulfate 220 MG CAP PO SCH (09:23)
[2021-07-29] MEDS: Pantoprazole 40 MG GRANULES PACKET PER TUBE SCH (09:23)
[2021-07-29] MEDS: NPH, Human Insulin Isophane 300 UNIT/3 ML VIAL SC SCH (10:23)
[2021-07-29] MEDS: hydrALAZINE 20 MG/ML VIAL SLOW IVP PRN (15:01)
[2021-07-30 05:26] LABS: Hemoglobin 10.1 g/dL (12.0-16.0); Hypochromia SLIGHT = 6-15 cells (100X) (0-5/hpf); Lymphocytes 12 % (21-51); MDiff Complete? YES; Mean Corpuscular HGB CONC 32.1 g/dL (32.0-36.0); Mean Corpuscular Hemoglobin 31.1 pg (27.0-31.0); Mean Corpuscular Volume 96.9 fL (78.0-98.0); Mean Platelet Volume 8.7 fL (7.4-10.4); Monocytes 5 % (0-10); Neutrophil 83 % (42-75); Platelet Count 148 thou/uL (130-400); Platelet Morphology Comment Appears Adequate; RBC Distribution Width 13.3 % (11.5-14.5); Red Blood Cell (RBC) Count 3.25 mill/uL (4.20-5.40); White Blood Cell (WBC) Count 6.2 thou/uL (4.8-10.8)
[2021-07-30 05:31] LABS: Anion Gap 7 mmol/L (10-20); BUN (Urea Nitrogen) 15 mg/dL (9.8-20.1); Calc. Creatinine Clearance 204 mL/min (70-130); Calcium 9.7 mg/dL (7.8-10.44); Carbon Dioxide 31 mmol/L (23-31); Chloride 106 mmol/L (98-107); Glucose 133 mg/dL (80-115); Potassium 3.8 mmol/L (3.5-5.1); Sodium 140 mmol/L (136-145)
[2021-07-30] MEDS: Pantoprazole 40 MG GRANULES PACKET PER TUBE SCH (09:23)
[2021-07-30] MEDS: Cholecalciferol 1,000 UNITS (25 MCG) TAB PO SCH (09:23)
[2021-07-30] MEDS: Zinc Sulfate 220 MG CAP PO SCH (09:23)
[2021-07-30] MEDS: methylPREDNISolone Sod Succ 40 MG VIAL IVP SCH (09:23)
[2021-07-30] MEDS: Amlodipine 10 MG TAB PO SCH (09:23)
[2021-07-30] MEDS: Enoxaparin Sodium 40 MG/0.4 ML SYRINGE SC SCH ×2 (09:23→21:00)
[2021-07-30] MEDS: Polyethylene Glycol 3350 17 GM Packet PER TUBE SCH (09:24)
[2021-07-30] MEDS: NPH, Human Insulin Isophane 300 UNIT/3 ML VIAL SC SCH (09:48)
[2021-07-30] MEDS: hydrALAZINE 20 MG/ML VIAL SLOW IVP PRN (15:12)
[2021-07-30] MEDS: Insulin Regular 300 UNITS/3 ML VIAL SC PRN (16:43)
[2021-07-31] MEDS: hydrALAZINE 20 MG/ML VIAL SLOW IVP PRN (03:55)
[2021-07-31 04:51] LABS: Anion Gap 9 mmol/L (10-20); BUN (Urea Nitrogen) 12 mg/dL (9.8-20.1); Calc. Creatinine Clearance 183 mL/min (70-130); Calcium 10.1 mg/dL (7.8-10.44); Carbon Dioxide 31 mmol/L (23-31); Chloride 105 mmol/L (98-107); Glucose 110 mg/dL (80-115); Potassium 3.6 mmol/L (3.5-5.1); Sodium 141 mmol/L (136-145)
[2021-07-31 05:03] LABS: Band 2 % (5-11); Eosinophils 2 % (0-10); Hemoglobin 10.6 g/dL (12.0-16.0); Lymphocytes 5 % (21-51); MDiff Complete? YES; Mean Corpuscular HGB CONC 32.3 g/dL (32.0-36.0); Mean Corpuscular Hemoglobin 31.2 pg (27.0-31.0); Mean Corpuscular Volume 96.8 fL (78.0-98.0); Mean Platelet Volume 8.1 fL (7.4-10.4); Monocytes 6 % (0-10); Neutrophil 84 % (42-75); Platelet Count 189 thou/uL (130-400); Platelet Morphology Comment Appears Adequate; RBC Distribution Width 13.4 % (11.5-14.5); RBC Morphology Normal; Reactive Lymphocytes 1 % (0-10); Red Blood Cell (RBC) Count 3.41 mill/uL (4.20-5.40); White Blood Cell (WBC) Count 5.7 thou/uL (4.8-10.8)
[2021-07-31] MEDS: Polyethylene Glycol 3350 17 GM Packet PER TUBE SCH (08:32)
[2021-07-31] MEDS: Zinc Sulfate 220 MG CAP PO SCH (08:32)
[2021-07-31] MEDS: Amlodipine 10 MG TAB PO SCH (08:32)
[2021-07-31] MEDS: Pantoprazole 40 MG GRANULES PACKET PER TUBE SCH (08:32)
[2021-07-31] MEDS: Enoxaparin Sodium 40 MG/0.4 ML SYRINGE SC SCH ×2 (08:32→21:52)
[2021-07-31] MEDS: Cholecalciferol 1,000 UNITS (25 MCG) TAB PO SCH (08:32)
[2021-07-31] MEDS: methylPREDNISolone Sod Succ 40 MG VIAL IVP SCH (08:33)
[2021-07-31] MEDS: NPH, Human Insulin Isophane 300 UNIT/3 ML VIAL SC SCH (08:34)
[2021-07-31] MEDS: Insulin Regular 300 UNITS/3 ML VIAL SC PRN ×2 (10:45→16:11)
[2021-08-01] MEDS: Lorazepam 2 MG/ML VIAL SLOW IVP PRN ×2 (02:03→20:40)
[2021-08-01] MEDS: hydrALAZINE 20 MG/ML VIAL SLOW IVP PRN (02:12)
[2021-08-01 05:19] LABS: Hemoglobin 10.4 g/dL (12.0-16.0); Hypochromia SLIGHT = 6-15 cells (100X) (0-5/hpf); Lymphocytes 21 % (21-51); MDiff Complete? YES; Mean Corpuscular HGB CONC 31.9 g/dL (32.0-36.0); Mean Corpuscular Hemoglobin 31.1 pg (27.0-31.0); Mean Corpuscular Volume 97.3 fL (78.0-98.0); Mean Platelet Volume 7.8 fL (7.4-10.4); Monocytes 5 % (0-10); Neutrophil 74 % (42-75); Platelet Count 202 thou/uL (130-400); Platelet Morphology Comment Appears Adequate; RBC Distribution Width 13.6 % (11.5-14.5); Red Blood Cell (RBC) Count 3.35 mill/uL (4.20-5.40); White Blood Cell (WBC) Count 6.2 thou/uL (4.8-10.8)
[2021-08-01 05:25] LABS: Anion Gap 10 mmol/L (10-20); BUN (Urea Nitrogen) 18 mg/dL (9.8-20.1); Calc. Creatinine Clearance 151 mL/min (70-130); Calcium 10.2 mg/dL (7.8-10.44); Carbon Dioxide 31 mmol/L (23-31); Chloride 106 mmol/L (98-107); Glucose 144 mg/dL (80-115); Potassium 3.6 mmol/L (3.5-5.1); Sodium 143 mmol/L (136-145)
[2021-08-01] MEDS: Enoxaparin Sodium 40 MG/0.4 ML SYRINGE SC SCH ×2 (08:30→20:40)
[2021-08-01] MEDS: methylPREDNISolone Sod Succ 40 MG VIAL IVP SCH (08:31)
[2021-08-01] MEDS: Cholecalciferol 1,000 UNITS (25 MCG) TAB PO SCH (08:31)
[2021-08-01] MEDS: Zinc Sulfate 220 MG CAP PO SCH (08:31)
[2021-08-01] MEDS: Pantoprazole 40 MG GRANULES PACKET PER TUBE SCH (08:31)
[2021-08-01] MEDS: Amlodipine 10 MG TAB PO SCH (08:31)
[2021-08-01] MEDS: NPH, Human Insulin Isophane 300 UNIT/3 ML VIAL SC SCH (08:32)
[2021-08-01] MEDS: Polyethylene Glycol 3350 17 GM Packet PER TUBE SCH (08:32)
[2021-08-01] MEDS: Insulin Regular 300 UNITS/3 ML VIAL SC PRN (15:57)
[2021-08-02 04:47] LABS: Hypochromia SLIGHT = 6-15 cells (100X) (0-5/hpf); Lymphocytes 23 % (21-51); MDiff Complete? YES; Mean Corpuscular HGB CONC 31.4 g/dL (32.0-36.0); Mean Corpuscular Hemoglobin 30.7 pg (27.0-31.0); Mean Corpuscular Volume 97.7 fL (78.0-98.0); Mean Platelet Volume 8.3 fL (7.4-10.4); Monocytes 8 % (0-10); Neutrophil 69 % (42-75); Platelet Count 234 thou/uL (130-400); Platelet Morphology Comment Appears Adequate; RBC Distribution Width 13.9 % (11.5-14.5); Red Blood Cell (RBC) Count 3.58 mill/uL (4.20-5.40); White Blood Cell (WBC) Count 7.7 thou/uL (4.8-10.8)
[2021-08-02 05:02] LABS: Anion Gap 8 mmol/L (10-20); BUN (Urea Nitrogen) 27 mg/dL (9.8-20.1); Calc. Creatinine Clearance 148 mL/min (70-130); Calcium 10.5 mg/dL (7.8-10.44); Carbon Dioxide 33 mmol/L (23-31); Chloride 104 mmol/L (98-107); Glucose 99 mg/dL (80-115); Potassium 3.7 mmol/L (3.5-5.1); Sodium 141 mmol/L (136-145)
[2021-08-02] MEDS: Lorazepam 2 MG/ML VIAL SLOW IVP PRN ×3 (06:25→22:53)
[2021-08-02] MEDS: Pantoprazole 40 MG GRANULES PACKET PER TUBE SCH (08:48)
[2021-08-02] MEDS: Cholecalciferol 1,000 UNITS (25 MCG) TAB PO SCH (08:48)
[2021-08-02] MEDS: Polyethylene Glycol 3350 17 GM Packet PER TUBE SCH (08:48)
[2021-08-02] MEDS: Zinc Sulfate 220 MG CAP PO SCH (08:48)
[2021-08-02] MEDS: Amlodipine 10 MG TAB PO SCH (08:48)
[2021-08-02] MEDS: Enoxaparin Sodium 40 MG/0.4 ML SYRINGE SC SCH ×2 (08:48→21:16)
[2021-08-02] MEDS: methylPREDNISolone Sod Succ 40 MG VIAL IVP SCH (08:49)
[2021-08-02] MEDS: NPH, Human Insulin Isophane 300 UNIT/3 ML VIAL SC SCH (08:49)
[2021-08-02] MEDS: Insulin Regular 300 UNITS/3 ML VIAL SC PRN (11:00)
[2021-08-03] MEDS: Lorazepam 2 MG/ML VIAL SLOW IVP PRN ×4 (01:12→20:36)
[2021-08-03 05:01] LABS: Hemoglobin 10.5 g/dL (12.0-16.0); Mean Corpuscular HGB CONC 32.7 g/dL (32.0-36.0); Mean Corpuscular Hemoglobin 31.9 pg (27.0-31.0); Mean Corpuscular Volume 97.6 fL (78.0-98.0); Mean Platelet Volume 8.1 fL (7.4-10.4); Platelet Count 230 thou/uL (130-400); RBC Distribution Width 14.1 % (11.5-14.5); Red Blood Cell (RBC) Count 3.28 mill/uL (4.20-5.40); White Blood Cell (WBC) Count 7.4 thou/uL (4.8-10.8)
[2021-08-03 05:12] LABS: Anion Gap 8 mmol/L (10-20); BUN (Urea Nitrogen) 24 mg/dL (9.8-20.1); Calc. Creatinine Clearance 146 mL/min (70-130); Calcium 10.1 mg/dL (7.8-10.44); Carbon Dioxide 31 mmol/L (23-31); Chloride 103 mmol/L (98-107); Glucose 159 mg/dL (80-115); Potassium 3.7 mmol/L (3.5-5.1); Sodium 138 mmol/L (136-145)
[2021-08-03 08:21] LABS: Eosinophils 2 % (0-10); Lymphocytes 17 % (21-51); MDiff Complete? YES; Monocytes 2 % (0-10); Neutrophil 79 % (42-75); Platelet Morphology Comment Appears Adequate; Polychromasia SLIGHT = 2-3 cells (100X) (0-2/hpf)
[2021-08-03] MEDS: Enoxaparin Sodium 40 MG/0.4 ML SYRINGE SC SCH ×2 (09:10→20:37)
[2021-08-03] MEDS: Pantoprazole 40 MG GRANULES PACKET PER TUBE SCH (09:11)
[2021-08-03] MEDS: Cholecalciferol 1,000 UNITS (25 MCG) TAB PO SCH (09:11)
[2021-08-03] MEDS: Amlodipine 10 MG TAB PO SCH (09:11)
[2021-08-03] MEDS: methylPREDNISolone Sod Succ 40 MG VIAL IVP SCH (09:11)
[2021-08-03] MEDS: Polyethylene Glycol 3350 17 GM Packet PER TUBE SCH (09:11)
[2021-08-03] MEDS: Zinc Sulfate 220 MG CAP PO SCH (09:11)
[2021-08-03] MEDS: NPH, Human Insulin Isophane 300 UNIT/3 ML VIAL SC SCH (09:12)
[2021-08-04] MEDS: Lorazepam 2 MG/ML VIAL SLOW IVP PRN ×3 (02:05→13:23)
[2021-08-04 05:24] LABS: Hemoglobin 10.1 g/dL (12.0-16.0); Mean Corpuscular HGB CONC 32.3 g/dL (32.0-36.0); Mean Corpuscular Hemoglobin 31.7 pg (27.0-31.0); Mean Corpuscular Volume 98.3 fL (78.0-98.0); Platelet Count 224 thou/uL (130-400); Red Blood Cell (RBC) Count 3.18 mill/uL (4.20-5.40); White Blood Cell (WBC) Count 6.9 thou/uL (4.8-10.8)
[2021-08-04 05:42] LABS: Anion Gap 10 mmol/L (10-20); BUN (Urea Nitrogen) 27 mg/dL (9.8-20.1); Calc. Creatinine Clearance 132 mL/min (70-130); Calcium 10.3 mg/dL (7.8-10.44); Carbon Dioxide 31 mmol/L (23-31); Chloride 103 mmol/L (98-107); Glucose 130 mg/dL (80-115); Magnesium 2.1 mg/dL (1.6-2.6); Potassium 3.6 mmol/L (3.5-5.1); Sodium 140 mmol/L (136-145)
[2021-08-04 05:59] LABS: Band 10 % (5-11); Lymphocytes 13 % (21-51); MDiff Complete? YES; Monocytes 6 % (0-10); Neutrophil 71 % (42-75)
[2021-08-04] MEDS: Polyethylene Glycol 3350 17 GM Packet PER TUBE SCH (08:15)
[2021-08-04] MEDS: methylPREDNISolone Sod Succ 40 MG VIAL IVP SCH (08:16)
[2021-08-04] MEDS: Enoxaparin Sodium 40 MG/0.4 ML SYRINGE SC SCH ×2 (08:16→21:49)
[2021-08-04] MEDS: Zinc Sulfate 220 MG CAP PO SCH (08:16)
[2021-08-04] MEDS: Cholecalciferol 1,000 UNITS (25 MCG) TAB PO SCH (08:16)
[2021-08-04] MEDS: Amlodipine 10 MG TAB PO SCH (08:16)
[2021-08-04] MEDS: Pantoprazole 40 MG GRANULES PACKET PER TUBE SCH (08:16)
[2021-08-04] MEDS: NPH, Human Insulin Isophane 300 UNIT/3 ML VIAL SC SCH (08:18)
[2021-08-04] MEDS: Acetaminophen 325 MG TAB PO PRN (08:55)
[2021-08-04] MEDS: Insulin Regular 300 UNITS/3 ML VIAL SC PRN (10:22)
[2021-08-05] MEDS: Lorazepam 2 MG/ML VIAL SLOW IVP PRN ×4 (00:14→22:20)
[2021-08-05 07:37] LABS: Anion Gap 9 mmol/L (10-20); BUN (Urea Nitrogen) 24 mg/dL (9.8-20.1); Calc. Creatinine Clearance 127 mL/min (70-130); Calcium 10.3 mg/dL (7.8-10.44); Carbon Dioxide 31 mmol/L (23-31); Chloride 103 mmol/L (98-107); Glucose 159 mg/dL (80-115); Potassium 3.7 mmol/L (3.5-5.1); Sodium 139 mmol/L (136-145)
[2021-08-05] MEDS: Cholecalciferol 1,000 UNITS (25 MCG) TAB PO SCH (08:03)
[2021-08-05] MEDS: Amlodipine 10 MG TAB PO SCH (08:04)
[2021-08-05] MEDS: Enoxaparin Sodium 40 MG/0.4 ML SYRINGE SC SCH ×2 (08:04→20:17)
[2021-08-05] MEDS: Pantoprazole 40 MG GRANULES PACKET PER TUBE SCH (08:05)
[2021-08-05] MEDS: Zinc Sulfate 220 MG CAP PO SCH (08:05)
[2021-08-05] MEDS: methylPREDNISolone Sod Succ 40 MG VIAL IVP SCH (08:05)
[2021-08-05] MEDS: Polyethylene Glycol 3350 17 GM Packet PER TUBE SCH (08:06)
[2021-08-05] MEDS: NPH, Human Insulin Isophane 300 UNIT/3 ML VIAL SC SCH (08:08)
[2021-08-05 09:04] LABS: Band 14 % (5-11); Eosinophils 1 % (0-10); Hemoglobin 10.5 g/dL (12.0-16.0); Lymphocytes 24 % (21-51); MDiff Complete? YES; Mean Corpuscular HGB CONC 32.1 g/dL (32.0-36.0); Mean Corpuscular Hemoglobin 31.6 pg (27.0-31.0); Mean Corpuscular Volume 98.3 fL (78.0-98.0); Mean Platelet Volume 8.1 fL (7.4-10.4); Monocytes 2 % (0-10); Neutrophil 59 % (42-75); Platelet Count 261 thou/uL (130-400); RBC Distribution Width 14.2 % (11.5-14.5); Red Blood Cell (RBC) Count 3.34 mill/uL (4.20-5.40); White Blood Cell (WBC) Count 6.6 thou/uL (4.8-10.8)
[2021-08-05] MEDS: Acetaminophen 325 MG TAB PO PRN (09:46)
[2021-08-05] MEDS ORDERED: Meropenem 2 GM in Admixture Fee 1 EACH IVPB SCH ×2 (11:35→14:00)
[2021-08-05] MEDS ORDERED: MEROPENEM 1 GM/50 ML 1 GM in Premix Bag 1 BAG IVPB SCH (12:15)
[2021-08-05] MEDS: Mag-Al 1200 mg/1200 mg/30 ML UDCUP PO PRN (14:42)
[2021-08-05] MEDS: Insulin Regular 300 UNITS/3 ML VIAL SC PRN ×2 (17:35→23:21)
[2021-08-05] MEDS: MEROPENEM 1 GM/50 ML 1 GM in Premix Bag 1 BAG IVPB SCH (20:17)
[2021-08-06] MEDS: MEROPENEM 1 GM/50 ML 1 GM in Premix Bag 1 BAG IVPB SCH ×3 (04:10→21:05)
[2021-08-06] MEDS: Insulin Regular 300 UNITS/3 ML VIAL SC PRN ×3 (04:23→22:20)
[2021-08-06 05:02] LABS: Hemoglobin 9.4 g/dL (12.0-16.0); Mean Corpuscular HGB CONC 31.6 g/dL (32.0-36.0); Mean Corpuscular Hemoglobin 31.1 pg (27.0-31.0); Mean Corpuscular Volume 98.2 fL (78.0-98.0); Mean Platelet Volume 8.3 fL (7.4-10.4); Platelet Count 249 thou/uL (130-400); RBC Distribution Width 13.9 % (11.5-14.5); Red Blood Cell (RBC) Count 3.02 mill/uL (4.20-5.40); White Blood Cell (WBC) Count 6.6 thou/uL (4.8-10.8)
[2021-08-06 05:14] LABS: Anion Gap 8 mmol/L (10-20); BUN (Urea Nitrogen) 32 mg/dL (9.8-20.1); Calc. Creatinine Clearance 120 mL/min (70-130); Calcium 10.4 mg/dL (7.8-10.44); Carbon Dioxide 32 mmol/L (23-31); Chloride 103 mmol/L (98-107); Glucose 213 mg/dL (80-115); Potassium 3.9 mmol/L (3.5-5.1); Sodium 139 mmol/L (136-145)
[2021-08-06 05:55] LABS: Band 16 % (5-11); Lymphocytes 19 % (21-51); MDiff Complete? YES; Monocytes 5 % (0-10); Neutrophil 60 % (42-75)
[2021-08-06] MEDS: Amlodipine 10 MG TAB PO SCH (09:07)
[2021-08-06] MEDS: Zinc Sulfate 220 MG CAP PO SCH (09:07)
[2021-08-06] MEDS: Polyethylene Glycol 3350 17 GM Packet PER TUBE SCH (09:07)
[2021-08-06] MEDS: Cholecalciferol 1,000 UNITS (25 MCG) TAB PO SCH (09:08)
[2021-08-06] MEDS: Pantoprazole 40 MG GRANULES PACKET PER TUBE SCH (09:08)
[2021-08-06] MEDS: methylPREDNISolone Sod Succ 40 MG VIAL IVP SCH (09:08)
[2021-08-06] MEDS: Enoxaparin Sodium 40 MG/0.4 ML SYRINGE SC SCH ×2 (09:08→21:05)
[2021-08-06] MEDS: NPH, Human Insulin Isophane 300 UNIT/3 ML VIAL SC SCH (09:13)
[2021-08-06] MEDS: Mag-Al 1200 mg/1200 mg/30 ML UDCUP PO PRN (09:50)
[2021-08-06 10:50] VITALS: BMI 26.6
[2021-08-07] MEDS: MEROPENEM 1 GM/50 ML 1 GM in Premix Bag 1 BAG IVPB SCH ×2 (03:36→10:56)
[2021-08-07 04:21] LABS: Hemoglobin 9.7 g/dL (12.0-16.0); Mean Corpuscular HGB CONC 32.2 g/dL (32.0-36.0); Mean Corpuscular Hemoglobin 31.7 pg (27.0-31.0); Mean Corpuscular Volume 98.5 fL (78.0-98.0); Mean Platelet Volume 8.3 fL (7.4-10.4); Platelet Count 288 thou/uL (130-400); RBC Distribution Width 13.7 % (11.5-14.5); Red Blood Cell (RBC) Count 3.05 mill/uL (4.20-5.40); White Blood Cell (WBC) Count 6.7 thou/uL (4.8-10.8)
[2021-08-07 04:29] LABS: Anion Gap 9 mmol/L (10-20); BUN (Urea Nitrogen) 26 mg/dL (9.8-20.1); Calc. Creatinine Clearance 127 mL/min (70-130); Calcium 10.4 mg/dL (7.8-10.44); Carbon Dioxide 32 mmol/L (23-31); Chloride 105 mmol/L (98-107); Glucose 140 mg/dL (80-115); Potassium 4.3 mmol/L (3.5-5.1); Sodium 142 mmol/L (136-145)
[2021-08-07 05:29] LABS: Band 11 % (5-11); Lymphocytes 17 % (21-51); MDiff Complete? YES; Monocytes 8 % (0-10); Neutrophil 64 % (42-75)
[2021-08-07] MEDS: Pantoprazole 40 MG GRANULES PACKET PER TUBE SCH (09:22)
[2021-08-07] MEDS: Amlodipine 10 MG TAB PO SCH (09:22)
[2021-08-07] MEDS: Zinc Sulfate 220 MG CAP PO SCH (09:22)
[2021-08-07] MEDS: methylPREDNISolone Sod Succ 40 MG VIAL IVP SCH (09:23)
[2021-08-07] MEDS: Cholecalciferol 1,000 UNITS (25 MCG) TAB PO SCH (09:23)
[2021-08-07] MEDS: Enoxaparin Sodium 40 MG/0.4 ML SYRINGE SC SCH (09:23)
[2021-08-07] MEDS: NPH, Human Insulin Isophane 300 UNIT/3 ML VIAL SC SCH (09:24)
[2021-08-07] MEDS: Polyethylene Glycol 3350 17 GM Packet PER TUBE SCH (09:24)
[2021-08-07 11:48] VITALS: BP 148/81
[2021-08-07 14:08] VITALS: TEMP 98.8
== END 2021-08-07 15:30 | DRG 4 ==
LOC: ERS 23:46 → ERHOLD 07-01 01:29 → IMCU/EMU 07-01 03:13 → CCU 07-03 19:13
PROVIDERS: ADMIT Internal Medicine; ATTEND Hospitalist
PROC: 5A0945A Assistance with Respiratory Ventilation, 24-96 Consecutive Hours, High Flow/Velocity Cannula (ICD-10-PCS; 2021-07-01)
PROC: 8E0ZXY6 Isolation (ICD-10-PCS; 2021-07-01)
PROC: XW0DXM6 Introduction of Baricitinib into Mouth and Pharynx, External Approach, New Technology Group 6 (ICD-10-PCS; 2021-07-02)
PROC: 5A1955Z Respiratory Ventilation, Greater than 96 Consecutive Hours (ICD-10-PCS; principal; 2021-07-03)
PROC: 0BH17EZ Insertion of Endotracheal Airway into Trachea, Via Natural or Artificial Opening (ICD-10-PCS; 2021-07-03)
PROC: 5A09357 Assistance with Respiratory Ventilation, Less than 24 Consecutive Hours, Continuous Positive Airway Pressure (ICD-10-PCS; 2021-07-03)
PROC: 0B110F4 Bypass Trachea to Cutaneous with Tracheostomy Device, Open Approach (ICD-10-PCS; 2021-07-25)
PROC: 0DH63UZ Insertion of Feeding Device into Stomach, Percutaneous Approach (ICD-10-PCS; 2021-07-25)
PROC: 3E0G76Z Introduction of Nutritional Substance into Upper GI, Via Natural or Artificial Opening (ICD-10-PCS; 2021-07-25)
PROC: 3E0333Z Introduction of Anti-inflammatory into Peripheral Vein, Percutaneous Approach (ICD-10-PCS; 2021-08-01)
DX: A41.89 Other specified sepsis (principal); U07.1 COVID-19; J12.82 Pneumonia due to coronavirus disease 2019; G93.41 Metabolic encephalopathy; J80 Acute respiratory distress syndrome; N17.9 Acute kidney failure, unspecified; E46 Unspecified protein-calorie malnutrition; E87.2 Acidosis; G72.81 Critical illness myopathy; N18.2 Chronic kidney disease, stage 2 (mild); R65.20 Severe sepsis without septic shock; R74.01 Elevation of levels of liver transaminase levels; E86.9 Volume depletion, unspecified; E66.9 Obesity, unspecified; E11.65 Type 2 diabetes mellitus with hyperglycemia; D53.9 Nutritional anemia, unspecified; R03.0 Elevated blood-pressure reading, without diagnosis of hypertension; T38.0X5A Adverse effect of glucocorticoids and synthetic analogues, initial encounter; E83.52 Hypercalcemia; E83.42 Hypomagnesemia; R45.1 Restlessness and agitation; E87.6 Hypokalemia; R13.12 Dysphagia, oropharyngeal phase; J98.2 Interstitial emphysema; Z91.19 Patient's noncompliance with other medical treatment and regimen; Z68.26 Body mass index [BMI] 26.0-26.9, adult; Z90.49 Acquired absence of other specified parts of digestive tract; Z90.710 Acquired absence of both cervix and uterus; Z78.1 Physical restraint status
CPT/HCPCS: 36415; 36416; 36600; 71045; 80048; 80053; 80076; 80202; 82607; 82728; 82746; 82805; 83735; 83970; 84100; 84443; 85007; 85025; 85027; 85060; 85379; 86140; 87040; 87070; 87205; 87324; 87449; 94002; 94003; 94660; 96372; 99285; C9113; J0360; J0692; J1100; J1650; J1815; J1940; J2001; J2060; J2185; J2250; J2270; J2543; J2704; J2765; J2920; J2930; J3010; J3370; J3475; J3480; J3490; J7042; J7050; J7070; S0020; U0002; U0005